=== PATIENT | female | born 1980 | race Caucasian/White ===

== ENCOUNTER 2018-04-10 06:05 | Day surgery (SDC) | payer BC ==
[~2018-04-10] VITALS: Ht 160 cm; Wt 65.9 kg
[~2018-04-10 06:05] MED LIST: LORTA5 PO; OMEP20CA5 PO; RANI150 PO
[2018-04-10 07:00] VITALS: BP 111/76; PULSE 72; RESP 20; TEMP 98.6; O2SAT 98
[2018-04-10] MEDS ORDERED: VANCOMYCIN HCL 1000 MG VIAL ONE (07:31)
[2018-04-10] MEDS ORDERED: CHLORHEXIDINE GLUCONATE 2 % 1 PACK (2 CLOTHS) TOPICAL SCH (07:45)
[2018-04-10] MEDS ORDERED: POVIDONE IODINE 5% (ANTISEPSIS KIT) 4 APPLICATIONS EACH NARE SCH (07:45)
[2018-04-10] MEDS ORDERED: VANCOMYCIN 1000 MG/NS 250 ML - implanted port/tunneled catheter IV SCH ×2 (07:45)
[2018-04-10] MEDS ORDERED: ceFAZolin 2 GM PREMIX 50 ML - implanted port/tunneled catheter insertion IV SCH (07:45)
[2018-04-10] MEDS ORDERED: SODIUM CHLORIDE 0.9% 1000 ML IV SCH (07:45)
[2018-04-10] MEDS ORDERED: MIDAZOLAM HCL 5 MG/5 ML VIAL ONE (07:51)
[2018-04-10] MEDS ORDERED: fentaNYL CITRATE 250 MCG/5 ML AMP ONE (07:51)
[2018-04-10] MEDS ORDERED: LIDOCAINE 1%/EPINEPHrine 1:100,000 SOLN 30 ML VIAL ONE (08:02)
--- NOTE | 2018-04-10 08:41 | PD.RAD ---
Post Procedure Progress Note Procedure Date: Apr 10, 2018 Supervising Radiologist: Korey Anderson Proceduralist/Assist: RT Yonas(R), Other Anesthesia: Conscious Sedation Plan of Activity Patient to Unit: ROPU Patient Condition: Good See PACS Report for procedural detail/treatment Korey Anderson MD Apr 10, 2018 08:41
[2018-04-10 08:50] VITALS: BP 126/68; PULSE 94; RESP 18; TEMP 98; O2SAT 100
[2018-04-10 09:05] VITALS: BP 109/65; PULSE 81; RESP 18; O2SAT 97
[2018-04-10 09:20] VITALS: BP 106/58; PULSE 74; RESP 18; O2SAT 97
[2018-04-10 10:00] VITALS: BP 135/84; PULSE 74; RESP 18; O2SAT 97
[2018-04-10] MEDS ORDERED: ACETAMINOPHEN 325 MG TAB PO ONE (10:00)
[2018-04-10 10:30] VITALS: BP 114/72; PULSE 72; RESP 18; O2SAT 98
--- NOTE | 2018-04-10 13:12 | RADRPT ---
EXAM DATE: 04/10/2018 9:11 AM EDT AGE/SEX: 38 years / Female INDICATIONS: Patient with newly diagnosis for breast cancer. CLINICAL DATA: This is the patient's initial encounter. Patient reports that signs and symptoms have been present for 1 month and indicates a pain score of 0/10. MEDICAL/SURGICAL HISTORY: Carcinoma, breast. Breast biopsy. COMPARISON: No prior exams available for comparison. FLUORO TIME (min): 0.18 IMAGE SERIES: 2 SEDATION TIME (min): 30 MEDICATION(S): 3.5 mg midazolam (Versed) IV 175 mcg fentanyl (Sublimaze) IV Prophylactic antibiotics were administered with appropriate pre-procedure timing. DEVICE(S): Right 8 fr xcela plus port . . PROCEDURE : 1. Continuous pulse oximetry and EKG monitoring. 2. Intravenous conscious sedation. 3. Ultrasound guidance for venous access. 4. Fluoroscopic guided implantable central venous port placement. The patient was placed supine. The neck was prepped in sterile fashion. Full sterile technique was u sed, including cap, mask, sterile gloves and gown, and a large sterile sheet. Hand hygiene and 2% ch lorhexidine Betadine was utilized per protocol for cutaneous antisepsis with appropriate dry time for site. Sterile gel and sterile probe cover were utilized for ultrasound guidance. The skin and sub cutaneous tissues were infiltrated with local anesthetic solution. Under direct ultrasound guidance, central venous access was accomplished in the targeted vessel. The ultrasound images depicting access guidance were stored and saved to PACS for permanent record. A s ubcutaneous pocket was created using blunt dissection. The port was introduced to the pocket. The c atheter tubing was fed through a subcutaneous tunnel to the venotomy site. The catheter tubing was c ut to a suitable length and then was introduced through a valved Peel-Away sheath and positioned with catheter tubing tip at the cavo-atrial junction level. The pocket incision was closed with subcutic ular Vicryl suture. Steri-Strips were applied. The port was flushed and locked with heparin solutio n per protocol. Sterile dressing was applied to the site. The patient tolerated the procedure well. Conscious sedation was performed with the prescribed dosages and duration as above in the presence of an independent trained radiology nurse to assist in the monitoring of the patient. EKG and oximetry remained stable throughout the procedure. The patient tolerated the procedure well and there were no complications. The patient was sent to post anesthesia recovery in stable condition. CONCLUSION: 1. Uncomplicated ultrasound and fluoroscopic guided implanted central venous port catheter placement as described in detail above. An 8 [place] Power port was placed. Electronically signed by: Korey Anderson MD 04/10/2018 1:11 PM EDT
== END 2018-04-10 10:50 | disposition home or self-care (01) ==
LOC: HROP 06:05 → HRIP 06:05 → HROP 10:50
PROVIDERS: ATTEND Internal Medicine Hematology & Oncology
DX: C50.911 Malignant neoplasm of unspecified site of right female breast (principal)
CPT/HCPCS: 36561; 76937; 77001; 88361; 99152; 99153; C1788; J0690; J1642; J2250; J3010; J3370; J7030

== ENCOUNTER 2018-05-24 20:45 | Observation (INO) ==
[2018-05-24] MEDS ORDERED: Pantoprazole Inj 40 MG Vial IV.PUSH ONE (21:47)
[2018-05-24] MEDS ORDERED: Sod Chloride 0.9% Inj 1,000 ML IV.SIG ONE (21:47)
--- NOTE | 2018-05-24 21:55 | ED ---
HPI General Chief Complaint: Abdominal Pain Stated Complaint: Abd pain Time Seen by Provider: 05/24/18 21:38 Source: patient and family Mode of arrival: ambulatory Limitations: no limitations History of Present Illness HPI narrative: She is a 38-year-old female presenting to emerge department for evaluation of abdominal pain, nausea. Patient is currently receiving chemotherapy for breast cancer. She had her last treatment today. She is currently followed by Dr. Vanessa and Dr. Alexandre. She reports that she has had colicky intermittent abdominal pain for the last week, today it has gotten worse prompting her presentation to emergency department. Patient states it makes her feel nauseated, sometimes alleviated with food but she has not been able to eat all day because he is nauseous from the chemotherapy. She reports that normally the Emend helps the nausea but today it has not. She denies any fever, chills, shortness of breath or chest pain. Symptom onset has been gradual, symptoms are moderate in nature. There are no alleviating factors. MD complaint: abdominal pain Onset (ago): week(s) Pain Consistency: intermittent and colicky Location: LUQ and epigastric Severity: moderate Severity scale (1-10): 6 Quality: cramping and aching Radiation: none Migration to: no migration Relieving factors: nothing Exacerbating factors: nothing Associated symptoms: nausea Related Data Previous Rx's Medication Instructions Recorded Lactobacillus acidoph-L.bulgar 1 tab PO TID #90 tab 05/27/18 [Lactinex] ondansetron [Zofran ODT] 8 mg PO TID PRN #30 tab 05/27/18 pantoprazole [Protonix] 40 mg PO DAILY #30 tab 05/27/18 sucralfate 1 gm PO Q6HR #120 gm 05/27/18 Allergies Allergy/AdvReac Type Severity Reaction Status Date / Time No Known Allergies Allergy Unknown Uncoded 04/10/18 07:27 Review of Systems Except as stated in HPI: all other systems reviewed are negative PMFSH History History Provided By: Patient Medical History Medical History Breast cancer (Acute) Surgical History Surgical History History of (Acute) History of tonsillectomy (Acute) Family History Family History Father Heart disease COPD (chronic obstructive pulmonary disease) Diabetes Exam Narrative Exam Narrative: GENERAL: Well-developed, well-nourished, alert female. Presenting in no acute distress. Appears uncomfortable. SKIN: Focused skin assessment warm/dry. HEAD: Atraumatic. Normocephalic. EYES: Pupils equal and round. No scleral icterus. No injection or drainage. ENT: No nasal bleeding or discharge. Mucous membranes pink and moist. NECK: Trachea midline. No JVD. CARDIOVASCULAR: Regular rate and rhythm. No murmur appreciated. RESPIRATORY: No accessory muscle use. Clear to auscultation. Breath sounds equal bilaterally. GASTROINTESTINAL: Abdomen soft, tender to palpation epigastric and left upper quadrant, nondistended. Hepatic and splenic margins not palpable. Positive guarding, no rebound. Positive bowel sounds. MUSCULOSKELETAL: No obvious deformities. No clubbing. No cyanosis. No edema. NEUROLOGICAL: Awake and alert. No obvious cranial nerve deficits. Motor grossly within normal limits. Normal speech. PSYCHIATRIC: Appropriate mood and affect; insight and judgment normal. Course Initial Documented Vital Signs Temperature 98.2 F 05/24/18 21:28 Pulse Rate 88 05/24/18 21:28 Respiratory Rate 20 05/24/18 21:28 Blood Pressure 125/75 05/24/18 21:28 Pulse Oximetry 99 05/24/18 21:28 Last Documented Vital Signs Temperature 98.2 F 05/27/18 13:00 Pulse Rate 83 05/27/18 13:00 Respiratory Rate 18 05/27/18 13:00 Blood Pressure 134/80 05/27/18 12:05 Pulse Oximetry 99 05/27/18 13:00 Medical Decision Making [facility] [place] Narrative Medical decision making narrative: Patient presented with abdominal pain and nausea. Symptoms have persisted for over a week. Labs and imaging ordered and pending, IV access established and patient was placed on telemetry monitoring continuous pulse oximetry. Patient is currently receiving chemotherapy for breast cancer. Care of patient transferred to my attending physician who will determine patient's disposition. Medical Records Medical records reviewed: Yes I reviewed the patient's medical records. Lab Data Lab results reviewed: Yes I reviewed the patient's lab results. Result diagrams: 05/27/18 05:30 05/27/18 05:30 Lab Results 05/24/18 05/24/18 05/25/18 Range/Units 22:15 22:15 05:49 WBC 13.6 H D 12.2 H (4.0-11.0) th/mm3 RBC 3.21 L 2.89 L (4.00-5.30) mil/mm3 Hgb 10.0 L 9.1 L (11.6-15.3) gm/dL Hct 29.7 L 26.7 L (35.0-46.0) % MCV 92.6 92.5 (80.0-100.0) fL MCH 31.2 31.4 (27.0-34.0) pg MCHC 33.7 33.9 (32.0-36.0) % RDW 14.1 14.2 (11.6-17.2) % Plt Count 325 289 (150-450) th/mm3 MPV 7.3 6.9 L (7.0-11.0) fL Prelim Diff (Auto) Slide review pending Neut % (Auto) 94.5 H 90.7 H (16.0-70.0) % Lymph % (Auto) 3.8 L 3.1 L (9.0-44.0) % [place] % (Auto) 1.4 6.0 (0.0-8.0) % Eos % (Auto) 0.0 0.0 (0.0-4.0) % Baso % (Auto) 0.3 0.2 (0.0-2.0) % Neut # (Auto) 12.8 H 11.1 H (1.8-7.7) th/mm3 Lymph # (Auto) 0.5 L 0.4 L (1.0-4.8) th/mm3 [place] # (Auto) 0.2 0.7 (0.0-0.9) th/mm3 Eos # (Auto) 0.0 0.0 (0.0-0.4) th/mm3 Baso # (Auto) 0.0 0.0 (0.0-0.2) th/mm3 WBC Differential Manual diff final . Seg Neuts % (Manual) 69 (16-70) % Band Neuts % (Manual) 21 H (0-6) % Lymphocytes % (Manual) 2 L (9-44) % Monocytes % (Manual) 3 (0-8) % Basophils % (Manual) (0-2) % Metamyelocytes % (Man) 4 H (0-1) % Myelocytes % (Man) 1 H (0-0) % Abs Neuts (Manual) 12.9 H (1.8-7.7) th/mm3 Differential Comment . Auto diff final Toxic Granulation 2+ H (None) Dohle Bodies (None) Platelet Estimate Normal (Normal) Platelet Morphology Normal (Normal) Ovalocytes (None) Sodium 139 (136-145) meq/L Potassium 4.1 (3.5-5.1) meq/L Chloride 104 (98-107) meq/L Carbon Dioxide 27.5 (21.0-32.0) meq/L Anion Gap 8 (5-15) meq/L BUN 12 (7-18) mg/dL Creatinine 0.59 (0.50-1.00) mg/dL Estimated GFR Greater than 89 (>89) mL/min Random Glucose 141 H (74-106) mg/dL Calcium 8.5 D (8.5-10.1) mg/dL Total Bilirubin 0.2 (0.2-1.0) mg/dL AST 17 (15-37) U/L ALT 18 (10-53) U/L Alkaline Phosphatase 102 (45-117) U/L Total Protein 7.4 D (6.4-8.2) g/dL Albumin 3.7 (3.4-5.0) g/dL Lipase 107 (73-393) U/L Urine Color (Yellw/Straw) Urine Clarity (Clear) Urine pH (5.0-8.5) Ur Specific [place] (1.002-1.035) Urine Protein (Neg-Trace) mg/dL Urine Glucose (UA) (Negative) mg/dL Urine Ketones (Negative) mg/dL Urine Occult Blood (Negative) Urine Nitrate (Negative) Urine Bilirubin (Negative) Urine Urobilinogen (Less than 2) mg/dL Ur Leukocyte Esterase (Negative) Urine RBC (0-3) /hpf Urine WBC (0-5) /hpf Ur Squamous Epith Cells (0-5) /hpf Micro UA Comment Urine Culture Comments 05/25/18 05/26/18 05/26/18 Range/Units 08:24 09:20 09:20 WBC 34.1 H (4.0-11.0) th/mm3 RBC 2.60 L (4.00-5.30) mil/mm3 Hgb 8.3 L (11.6-15.3) gm/dL Hct 24.4 L (35.0-46.0) % MCV 93.5 (80.0-100.0) fL MCH 31.7 (27.0-34.0) pg MCHC 33.9 (32.0-36.0) % RDW 15.4 (11.6-17.2) % Plt Count 231 (150-450) th/mm3 MPV 7.1 (7.0-11.0) fL Prelim Diff (Auto) Slide review pending Neut % (Auto) 96.3 H (16.0-70.0) % Lymph % (Auto) 1.6 L (9.0-44.0) % [place] % (Auto) 1.9 (0.0-8.0) % Eos % (Auto) 0.0 (0.0-4.0) % Baso % (Auto) 0.2 (0.0-2.0) % Neut # (Auto) 32.8 H (1.8-7.7) th/mm3 Lymph # (Auto) 0.5 L (1.0-4.8) th/mm3 [place] # (Auto) 0.6 (0.0-0.9) th/mm3 Eos # (Auto) 0.0 (0.0-0.4) th/mm3 Baso # (Auto) 0.1 (0.0-0.2) th/mm3 WBC Differential Manual diff final Seg Neuts % (Manual) 79 H (16-70) % Band Neuts % (Manual) 15 H (0-6) % Lymphocytes % (Manual) 2 L (9-44) % Monocytes % (Manual) 3 (0-8) % Basophils % (Manual) 1 (0-2) % Metamyelocytes % (Man) (0-1) % Myelocytes % (Man) (0-0) % Abs Neuts (Manual) 32.1 H (1.8-7.7) th/mm3 Differential Comment . Toxic Granulation 1+ H (None) Dohle Bodies (None) Platelet Estimate Normal (Normal) Platelet Morphology Normal (Normal) Ovalocytes 1+ H (None) Sodium 144 (136-145) meq/L Potassium 3.3 L D (3.5-5.1) meq/L Chloride 109 H (98-107) meq/L Carbon Dioxide 25.5 (21.0-32.0) meq/L Anion Gap 10 (5-15) meq/L BUN 11 (7-18) mg/dL Creatinine 0.65 (0.50-1.00) mg/dL Estimated GFR Greater than 89 (>89) mL/min Random Glucose 99 (74-106) mg/dL Calcium 8.0 L (8.5-10.1) mg/dL Total Bilirubin 0.3 (0.2-1.0) mg/dL AST 14 L (15-37) U/L ALT 13 (10-53) U/L Alkaline Phosphatase 77 (45-117) U/L Total Protein 5.5 L D (6.4-8.2) g/dL Albumin 2.8 L D (3.4-5.0) g/dL Lipase (73-393) U/L Urine Color Straw (Yellw/Straw) Urine Clarity Clear (Clear) Urine pH 6.0 (5.0-8.5) Ur Specific [place] 1.013 (1.002-1.035) Urine Protein Negative (Neg-Trace) mg/dL Urine Glucose (UA) Negative (Negative) mg/dL Urine Ketones Negative (Negative) mg/dL Urine Occult Blood Negative (Negative) Urine Nitrate Negative (Negative) Urine Bilirubin Negative (Negative) Urine Urobilinogen Less than 2 (Less than 2) mg/dL Ur Leukocyte Esterase Negative (Negative) Urine RBC Less than 1 (0-3) /hpf Urine WBC Less than 1 (0-5) /hpf Ur Squamous Epith Cells 1 (0-5) /hpf Micro UA Comment Culture not ind Urine Culture Comments Culture not ind 05/27/18 05/27/18 Range/Units 05:30 05:30 WBC 42.7 H (4.0-11.0) th/mm3 RBC 2.88 L (4.00-5.30) mil/mm3 Hgb 9.2 L (11.6-15.3) gm/dL Hct 26.7 L (35.0-46.0) % MCV 92.6 (80.0-100.0) fL MCH 31.9 (27.0-34.0) pg MCHC 34.5 (32.0-36.0) % RDW 14.9 (11.6-17.2) % Plt Count 254 (150-450) th/mm3 MPV 6.8 L (7.0-11.0) fL Prelim Diff (Auto) Manual diff required Neut % (Auto) (16.0-70.0) % Lymph % (Auto) (9.0-44.0) % [place] % (Auto) (0.0-8.0) % Eos % (Auto) (0.0-4.0) % Baso % (Auto) (0.0-2.0) % Neut # (Auto) (1.8-7.7) th/mm3 Lymph # (Auto) (1.0-4.8) th/mm3 [place] # (Auto) (0.0-0.9) th/mm3 Eos # (Auto) (0.0-0.4) th/mm3 Baso # (Auto) (0.0-0.2) th/mm3 WBC Differential Manual diff final Seg Neuts % (Manual) 85 H (16-70) % Band Neuts % (Manual) 13 H (0-6) % Lymphocytes % (Manual) 1 L (9-44) % Monocytes % (Manual) 2 (0-8) % Basophils % (Manual) (0-2) % Metamyelocytes % (Man) (0-1) % Myelocytes % (Man) (0-0) % Abs Neuts (Manual) 41.8 H (1.8-7.7) th/mm3 Differential Comment . Toxic Granulation 1+ H (None) Dohle Bodies Present H (None) Platelet Estimate Normal (Normal) Platelet Morphology Normal (Normal) Ovalocytes (None) Sodium 143 (136-145) meq/L Potassium 3.7 (3.5-5.1) meq/L Chloride 110 H (98-107) meq/L Carbon Dioxide 28.0 (21.0-32.0) meq/L Anion Gap 5 (5-15) meq/L BUN 10 (7-18) mg/dL Creatinine 0.57 (0.50-1.00) mg/dL Estimated GFR Greater than 89 (>89) mL/min Random Glucose 91 (74-106) mg/dL Calcium 8.1 L (8.5-10.1) mg/dL Total Bilirubin (0.2-1.0) mg/dL AST (15-37) U/L ALT (10-53) U/L Alkaline Phosphatase (45-117) U/L Total Protein (6.4-8.2) g/dL Albumin (3.4-5.0) g/dL Lipase (73-393) U/L Urine Color (Yellw/Straw) Urine Clarity (Clear) Urine pH (5.0-8.5) Ur Specific [place] (1.002-1.035) Urine Protein (Neg-Trace) mg/dL Urine Glucose (UA) (Negative) mg/dL Urine Ketones (Negative) mg/dL Urine Occult Blood (Negative) Urine Nitrate (Negative) Urine Bilirubin (Negative) Urine Urobilinogen (Less than 2) mg/dL Ur Leukocyte Esterase (Negative) Urine RBC (0-3) /hpf Urine WBC (0-5) /hpf Ur Squamous Epith Cells (0-5) /hpf Micro UA Comment Urine Culture Comments Imaging Data Radiologist's impression: Gallbladder Ultrasound 05/25/18 00:00 CONCLUSION: 1. Normal exam Abdomen/Pelvis CT 05/25/18 00:18 CONCLUSION: 1. 1.7 cm tubular structure adjacent to the inferior cecum could represent a dilated appendix; inflamed appendix cannot be excluded. 2. Mild amount of free fluid in the dependent pelvis on the right side. Discharge Plan Discharge Disposition Patient Disposition: 30 Still Patient Discharge Condition Condition: Stable Discharge Order Discharge Orders: Discharge Order (Routine); Ordered 05/27/18 Ordered By: Vinnie Lockwood Discharge Details Anticipated Discharge Date: 05/27/18 Discharge Comment: DC TO HOME Physicians Team ED Provider: Shankar Martinez ED Midlevel Provider: Rafaela Rizo Primary Care Provider: Lorenza Moore Attending Provider: Vinnie Lockwood Other Providers: Casa Vanessa ; Shankar Walton ; Glenys Gill ; Rosamaria Bob Status ED Status: Left Department Discharge Information Discharge Date/Time: 05/25/18 09:14
[2018-05-24 22:35] LABS: Baso % (Auto) 0.3 % (0.0-2.0); Hematocrit 29.7 % (35.0-46.0); Lymph # (Auto) 0.5 th/mm3 (1.0-4.8); Lymph % (Auto) 3.8 % (9.0-44.0); Mean Corpuscular HGB Conc 33.7 % (32.0-36.0); Mean Corpuscular Hemoglobin 31.2 pg (27.0-34.0); Mean Corpuscular Volume 92.6 fL (80.0-100.0); Mean Platelet Volume 7.3 fL (7.0-11.0); Mono # (Auto) 0.2 th/mm3 (0.0-0.9); Mono % (Auto) 1.4 % (0.0-8.0); Neut # (Auto) 12.8 th/mm3 (1.8-7.7); Neut % (Auto) 94.5 % (16.0-70.0); Platelet Count 325 th/mm3 (150-450); Red Blood Count 3.21 mil/mm3 (4.00-5.30); Red Cell Distribution Width 14.1 % (11.6-17.2); White Blood Count 13.6 th/mm3 (4.0-11.0)
[2018-05-24 22:43] LABS: Albumin 3.7 g/dL (3.4-5.0); Anion Gap 8 meq/L (5-15); Aspartate Aminotransferase 17 U/L (15-37); Blood Urea Nitrogen 12 mg/dL (7-18); Calcium 8.5 mg/dL (8.5-10.1); Carbon Dioxide 27.5 meq/L (21.0-32.0); Chloride 104 meq/L (98-107); Glomerular Filtration Rate Greater Than 89 mL/min (>89); Glucose,Random 141 mg/dL (74-106); Lipase 107 U/L (73-393); Potassium 4.1 meq/L (3.5-5.1); Sodium 139 meq/L (136-145)
[2018-05-24 22:46] LABS: Alanine Aminotransferase 18 U/L (10-53); Alkaline Phosphatase 102 U/L (45-117); Total Protein 7.4 g/dL (6.4-8.2)
[2018-05-25 00:49] LABS: Lymphocytes 2 % (9-44); Metamyelocytes 4 % (0-1); Monocytes 3 % (0-8); Myelocytes 1 % (0-0); Platelet Estimate Normal (Normal); Platelet Morphology Normal (Normal)
[2018-05-25 00:50] LABS: Toxic Granulation 2+
--- NOTE | 2018-05-25 01:40 | CT ---
EXAM DATE: 05/25/2018 1:28 AM EDT AGE/SEX: 38 years / Female INDICATIONS: Abdominal pain and nausea. CLINICAL DATA: This is the patient's initial encounter. Patient reports that signs and symptoms have been present for 1 day and indicates a pain score of 5/10. MEDICAL/SURGICAL HISTORY: Carcinoma, breast. None. ORAL CONTRAST: No oral contrast ingested. RADIATION DOSE: 6.92 CTDI (mGy) COMPARISON: No prior exams available for comparison. TECHNIQUE: Multiple contiguous axial images were obtained through the abdomen and pelvis following b olus infusion of 90 ml Omnipaque 350 (iohexol) nonionic water-soluble contrast as a single exam dos e. No oral contrast ingested. Using automated exposure control and adjustment of the mA and/or kV ac cording to patient size, radiation dose was kept as low as reasonably achievable to obtain optimal di agnostic quality images. DICOM format image data is available electronically for review and comparis on. FINDINGS: Examination is performed with the patient's right arm in the [id number] of the exam. Lower Lungs: The visualized lower lungs are clear. Liver: The liver has a homogeneous density without space-occupying lesion. There is no dilation of th e biliary tree. No calcified gallstones. Spleen: Homogeneous density without enlargement. Pancreas: Unremarkable without mass or calcification. Kidneys: Normal in size and shape. No evidence of mass or hydronephrosis. Mildly prominent extrarena l pelvis on both sides. Adrenal Glands: Unremarkable. Aorta: The aorta and proximal iliac vessels are grossly unremarkable without aneurysmal dilation. Bowel/Mesentery: No dilated loops of small or large bowel. Inferior to the cecum, there is a tubular structure which measures 1.7 cm in dimension. This does not represent the terminal ileum and could r epresent a distended appendix. No induration of the fat about this structure and no evidence of focal fluid in the right lower quadrant. Abdominal Wall: Intact. Retroperitoneum: No evidence of adenopathy in the retrocrural, para-aortic, or deep pelvic regions. Bladder: Contours are smooth. Reproductive Organs: Anteverted uterus. No abnormal masses or calcifications seen. Mild amount of fr ee fluid in the dependent pelvis. Inguinal: The inguinal region is unremarkable without evidence of adenopathy. Bony Structures: Unremarkable. CONCLUSION: 1. 1.7 cm tubular structure adjacent to the inferior cecum could represent a dilated appendix; infla med appendix cannot be excluded. 2. Mild amount of free fluid in the dependent pelvis on the right side. Electronically signed by: Akin Cuadra MD 05/25/2018 1:39 AM EDT
[2018-05-25] MEDS ORDERED: Morphine Inj 4 MG/ML Vial IV.PUSH ONE (02:09)
[2018-05-25] MEDS ORDERED: Aluminum/Magnesium/Simethacone Susp 30 ML UDC PO ONE (02:14)
[2018-05-25] MEDS ORDERED: fentaNYL Citrate Inj 100 MCG/2 ML Ampul IV.PUSH ONE (04:53)
[2018-05-25 06:05] LABS: Baso % (Auto) 0.2 % (0.0-2.0); Hematocrit 26.7 % (35.0-46.0); Hemoglobin 9.1 gm/dL (11.6-15.3); Lymph # (Auto) 0.4 th/mm3 (1.0-4.8); Lymph % (Auto) 3.1 % (9.0-44.0); Mean Corpuscular HGB Conc 33.9 % (32.0-36.0); Mean Corpuscular Hemoglobin 31.4 pg (27.0-34.0); Mean Corpuscular Volume 92.5 fL (80.0-100.0); Mean Platelet Volume 6.9 fL (7.0-11.0); Mono # (Auto) 0.7 th/mm3 (0.0-0.9); Neut # (Auto) 11.1 th/mm3 (1.8-7.7); Neut % (Auto) 90.7 % (16.0-70.0); Platelet Count 289 th/mm3 (150-450); Red Blood Count 2.89 mil/mm3 (4.00-5.30); Red Cell Distribution Width 14.2 % (11.6-17.2); White Blood Count 12.2 th/mm3 (4.0-11.0)
[2018-05-25] MEDS ORDERED: Piperacil/Tazo 3.375 GM Premix 50 ML IV.SIG ONE (06:19)
[2018-05-25] MEDS ORDERED: Bisacodyl 10 MG Supp RECTAL PRN (06:21)
[2018-05-25] MEDS ORDERED: Temazepam 15 MG Capsule PO PRN (06:21)
[2018-05-25] MEDS ORDERED: Acetaminophen 325 MG Tablet PO PRN (06:21)
[2018-05-25] MEDS: Sod Chloride 0.9% Inj 1,000 ML IV.CONT SCH ×2 (06:40→23:27)
[2018-05-25] MEDS ORDERED: Morphine Inj 4 MG/ML Vial IV.PUSH PRN (08:00)
--- NOTE | 2018-05-25 08:11 | P.HPIM ---
History of Present Illness Primary Care Physician: Lorenza Moore History of Present Illness: 38-year-old female currently undergoing chemotherapy for breast cancer who presented for abdominal pain. The patient has been having upper mid abdominal discomfort intermittently for the past week. The pain waxes and wanes. The pain peaked at 8/10 in severity yesterday and she came to the ED for evaluation. Denies any recent change to chemotherapy regimen, follows with Dr. Vanessa. She has been having some associated nausea and decreased oral intake, but denies any vomiting, diarrhea, or constipation. CT abdomen in the ED showed possible dilated appendix, inflamed appendix cannot be excluded, mild free fluid in the dependent pelvis on the right side. WBC count 13 with left shift and bandemia, no fever. Review of Systems All other systems reviewed negative except as stated in HPI PMFSH - History History Provided By: Patient - Medical History Medical History: Medical History (Last Reviewed 05/25/18 @ 08:04 by RIGO Carter) Breast cancer - Family History Family History: Family History (Last Updated 05/25/18 @ 08:05 by RIGO Carter) Father Heart disease - Tobacco History Smoking Status: Never smoker - Alcohol History How Often Do You Have a Drink Containing Alcohol: Never - Substance Use History Substance History: No History of Abuse - Travel History Recent Travel in the [place] Within the Last 8 Weeks: No Recent Travel Out of the Country Within the Last 8 Weeks: No - Immunization History Tetanus Immunization: >5 Years Hx Influenza Vaccine This Season: No Medications and Allergies Active Medications: Active Medications Acetaminophen (Tylenol) 650 mg PO Q4H PRN PRN Reason: Temp > 100.4 Al Hydroxide/Mg Hydroxide (Milk Of Magnesia Liq) 30 ml PO Q12H PRN PRN Reason: Mild Constipation Bisacodyl (Dulcolax Supp) 10 mg RECTAL DAILY PRN PRN Reason: SEVERE CONSITIPATION Sodium Chloride (Ns Inj) 1,000 mls @ 100 mls/hr IV.CONT .Q10H FATOU Last Admin: 05/25/18 06:40 Dose: 100 mls/hr Piperacillin/Tazobactam/Dextrose (Zosyn 4.5 Gm Premix) 4.5 gm in 100 mls @ 200 mls/hr IV.SIG Q6H FATOU Lactulose (Lactulose Liq) 30 ml PO DAILY PRN PRN Reason: SEVERE CONSITIPATION Morphine Sulfate (Morphine Inj) 2 mg IV.PUSH Q4H PRN PRN Reason: ABDOMINAL PAIN Ondansetron HCl (Zofran Inj) 4 mg IV.PUSH Q6H PRN PRN Reason: NAUSEA OR VOMITING Prochlorperazine Edisylate (Compazine Inj) 10 mg IV.PUSH Q6H PRN PRN Reason: NAUSE/VOMITING Senna/Docusate Sodium (Hayley-Colace) 1 tab PO BID FATOU Sennosides (Senokot) 17.2 mg PO Q12H PRN PRN Reason: Moderate Constipation Sodium Chloride (Ns Flush) 2 ml IV.FLUSH PRN PRN PRN Reason: FLUSH AFTER USING IV ACCESS Temazepam (Restoril) 15 mg PO HS PRN PRN Reason: INSOMNIA Allergies Allergy/AdvReac Type Severity Reaction Status Date / Time No Known Allergies Allergy Unknown Uncoded 04/10/18 07:27 Home Medications Medication Instructions Recorded Confirmed Type aprepitant [Emend] See Label Instructions .ROUTE 05/25/18 History .COMPLEX pegfilgrastim [Neulasta] See Label Instructions .ROUTE 05/25/18 05/25/18 History .COMPLEX Exam Vital signs: Vital Signs 05/24/18 21:28 05/24/18 22:19 05/25/18 04:46 Temperature 98.2 F 98.6 F Pulse Rate 88 78 Respiratory Rate 20 16 Blood Pressure 125/75 109/62 Pulse Oximetry 99 98 100 Intake & Output 05/24/18 05/25/18 05/25/18 18:59 06:59 18:59 Intake Total 1000 / 1000 Balance 1000 / 1000 Weight 156 lb 8.451 oz Intake: IV 1000 / 1000 Narrative: GENERAL: Well-developed well-nourished. In no acute distress. SKIN: Warm and dry. No lesions noted. HEENT: Normocephalic. Pupils equal and round. Mucous membranes pink and moist. CARDIOVASCULAR: Regular rate and rhythm. No murmur appreciated. RESPIRATORY: No accessory muscle use. Clear to auscultation. Breath sounds equal bilaterally. GASTROINTESTINAL: Abdomen is tender superior to the umbilicus. No rebound tenderness. Soft, nondistended. Hypoactive bowel sounds. MUSCULOSKELETAL: No obvious deformities. No clubbing or cyanosis. No edema. NEUROLOGICAL: Awake and alert. No focal neurological deficits. Moves upper and lower extremities spontaneously. Normal speech. PSYCHIATRIC: Appropriate mood and affect; insight and judgment normal. Results - Labs CBC & Chem 7: 05/25/18 05:49 05/24/18 22:15 Labs: Short CBC 05/24/18 05/25/18 Range/Units 22:15 05:49 WBC 13.6 H D 12.2 H (4.0-11.0) th/mm3 Hgb 10.0 L 9.1 L (11.6-15.3) gm/dL Hct 29.7 L 26.7 L (35.0-46.0) % Plt Count 325 289 (150-450) th/mm3 BMP 05/24/18 22:15 Sodium 139 Potassium 4.1 Chloride 104 Carbon Dioxide 27.5 BUN 12 Creatinine 0.59 Calcium 8.5 D Liver Function 05/24/18 Range/Units 22:15 Total Bilirubin 0.2 (0.2-1.0) mg/dL AST 17 (15-37) U/L ALT 18 (10-53) U/L Alkaline Phosphatase 102 (45-117) U/L Albumin 3.7 (3.4-5.0) g/dL - Imaging Impressions Abdomen/Pelvis CT 05/25/18 00:18 CONCLUSION: 1. 1.7 cm tubular structure adjacent to the inferior cecum could represent a dilated appendix; inflamed appendix cannot be excluded. 2. Mild amount of free fluid in the dependent pelvis on the right side. Caprini VTE Risk Assessment Caprini VTE Risk Assessment: Moderate/High Risk (score >= 2) Caprini Risk Assessment Model: Point Value = 1 Point Value = 2 Point Value = 3 Point Value = 5 Age 41-60 Minor surgery BMI > 25 kg/m2 Swollen legs Varicose veins or History of unexplained or recurrent spontaneous Oral contraceptives or hormone replacement Sepsis (< 1 month) Serious lung disease, including pneumonia (< 1 month) Abnormal pulmonary function Acute myocardial infarction Congestive heart failure (< 1 month) History of inflammatory bowel disease Medical patient at bed rest Age 61-74 Arthroscopic surgery Major open surgery (> 45 min) Laparoscopic surgery (> 45 min) Malignancy Confined to bed (> 72 hours) Immobilizing plaster cast Central venous access Age >= 75 History of VTE Family history of VTE Factor V Leiden Prothrombin [id number] Lupus anticoagulant Anticardiolipin antibodies Elevated serum homocysteine Heparin-induced thrombocytopenia Other congenital or acquired thrombophilia Stroke (< 1 month) Elective arthroplasty Hip, pelvis, or leg fracture Acute spinal cord injury (< 1 month) Prophylaxis Regimen: Total Risk Factor Score Risk Level Prophylaxis Regimen 0-1 Low Early ambulation 2 Moderate Order ONE of the following: *Sequential Compression Device (SCD) *Heparin 5000 units SQ BID 3-4 Higher Order ONE of the following medications: *Heparin 5000 units SQ TID *Enoxaparin/Lovenox 40 mg SQ daily (WT < 150 kg, CrCl > 30 mL/min) *Enoxaparin/Lovenox 30 mg SQ daily (WT < 150 kg, CrCl > 10-29 mL/min) *Enoxaparin/Lovenox 30 mg SQ BID (WT < 150 kg, CrCl > 30 mL/min) AND/OR *Sequential Compression Device (SCD) 5 or more Highest Order ONE of the following medications: *Heparin 5000 units SQ TID (Preferred with Epidurals) *Enoxaparin/Lovenox 40 mg SQ daily (WT < 150 kg, CrCl > 30 mL/min) *Enoxaparin/Lovenox 30 mg SQ daily (WT < 150 kg, CrCl > 10-29 mL/min) *Enoxaparin/Lovenox 30 mg SQ BID (WT < 150 kg, CrCl > 30 mL/min) AND *Sequential Compression Device (SCD) Assessment and Plan - Plan 38-year-old female currently undergoing chemotherapy for breast cancer who presented for abdominal pain Abdominal pain: Rule out appendicitis, general surgery has been consulted. N.p.o. and IVF. IV Zosyn. Pain control with IV morphine prn. If no appendicitis, may need GI evaluation. Check UA. Breast cancer: Currently undergoing chemotherapy with Dr. Vanessa, consider routine consult to touch base. Discussed Condition With: Patient, Dr. Lozano
[2018-05-25 08:44] LABS: Bilirubin,Urine Negative (Negative); Clarity,Urine Clear (Clear); Color,Urine Straw (Yellw/Straw); Glucose,Urine (UA) Negative (Negative); Leukocyte Esterase,Urine Negative (Negative); Nitrite,Urine Negative (Negative); Specific Gravity,Urine 1.013 (1.002-1.035); Squamous Epithelial Cell,Urine 1 /hpf (0-5)
--- NOTE | 2018-05-25 10:29 | P.CONGS ---
[facility] Gen Surgery Consult Note Consult date: 05/25/18 Reason for consult: abdominal pain Narrative: 38-year-old female currently undergoing chemotherapy for breast cancer under care of Dr. Vanessa presents with severe epigastric abdominal pain. She has had epigastric abdominal pain and nausea for approximately 1 week. She had chemotherapy yesterday. Her pain worsened and became quite severe and she presented to the emergency department. She tried Emend which she has taken before for chemo related nausea but her symptoms persisted. The patient has mild leukocytosis. She did receive Neulasta. CT of the abdomen and pelvis showed possibly dilated appendix but without inflammatory changes. Review of Systems All other systems reviewed negative except as stated in [facility] - History History Provided By: Patient - Medical History Medical History: Medical History (Last Reviewed 05/25/18 @ 08:04 by RIGO Carter) Breast cancer - Surgical History Surgical History: Surgical History (Last Updated 05/25/18 @ 08:04 by RIGO Carter) History of History of tonsillectomy - Family History Family History: Family History (Last Updated 05/25/18 @ 08:05 by RIGO Carter) Father Heart disease COPD (chronic obstructive pulmonary disease) Diabetes - Tobacco History Smoking Status: Never smoker - Alcohol History How Often Do You Have a Drink Containing Alcohol: Never - Substance Use History Substance History: No History of Abuse - Travel History Recent Travel in the [place] Within the Last 8 Weeks: No Recent Travel Out of the Country Within the Last 8 Weeks: No - Immunization History Tetanus Immunization: >5 Years Hx Influenza Vaccine This Season: No Medications and Allergies Active Medications: Active Medications Acetaminophen (Tylenol) 650 mg PO Q4H PRN PRN Reason: Temp > 100.4 Al Hydroxide/Mg Hydroxide (Milk Of Magnesia Liq) 30 ml PO Q12H PRN PRN Reason: Mild Constipation Bisacodyl (Dulcolax Supp) 10 mg RECTAL DAILY PRN PRN Reason: SEVERE CONSITIPATION Sodium Chloride (Ns Inj) 1,000 mls @ 100 mls/hr IV.CONT .Q10H FATOU Last Admin: 05/25/18 06:40 Dose: 100 mls/hr Piperacillin/Tazobactam/Dextrose (Zosyn 4.5 Gm Premix) 4.5 gm in 100 mls @ 200 mls/hr IV.SIG Q6H FATOU Lactulose (Lactulose Liq) 30 ml PO DAILY PRN PRN Reason: SEVERE CONSITIPATION Morphine Sulfate (Morphine Inj) 2 mg IV.PUSH Q4H PRN PRN Reason: ABDOMINAL PAIN Ondansetron HCl (Zofran Inj) 4 mg IV.PUSH Q6H PRN PRN Reason: NAUSEA OR VOMITING Prochlorperazine Edisylate (Compazine Inj) 10 mg IV.PUSH Q6H PRN PRN Reason: NAUSE/VOMITING Senna/Docusate Sodium (Hayley-Colace) 1 tab PO BID FATOU Sennosides (Senokot) 17.2 mg PO Q12H PRN PRN Reason: Moderate Constipation Sodium Chloride (Ns Flush) 2 ml IV.FLUSH PRN PRN PRN Reason: FLUSH AFTER USING IV ACCESS Temazepam (Restoril) 15 mg PO HS PRN PRN Reason: INSOMNIA Allergies Allergy/AdvReac Type Severity Reaction Status Date / Time No Known Allergies Allergy Unknown Uncoded 04/10/18 07:27 Home Medications Medication Instructions Recorded Confirmed Type aprepitant [Emend] See Label Instructions .ROUTE 05/25/18 History .COMPLEX pegfilgrastim [Neulasta] See Label Instructions .ROUTE 05/25/18 05/25/18 History .COMPLEX Exam Vital signs: Vital Signs 05/24/18 21:28 05/24/18 22:19 05/25/18 04:46 Temperature 98.2 F 98.6 F Pulse Rate 88 78 Respiratory Rate 20 16 Blood Pressure 125/75 109/62 Pulse Oximetry 99 98 100 05/25/18 08:19 Temperature 98.6 F Pulse Rate 82 Respiratory Rate 16 Blood Pressure 111/72 Pulse Oximetry 99 Intake & Output 05/24/18 05/25/18 05/25/18 18:59 06:59 18:59 Intake Total 1000 / 1000 Balance 1000 / 1000 Weight 71 kg Intake: IV 1000 / 1000 Narrative: GENERAL: Awake and alert. No acute distress. Cooperative. HEAD: Normocephalic. Atraumatic. EYES: Pupils equal round and reactive to light bilaterally. No scleral icterus. ENT: Moist oral mucosa. NECK: Trachea midline. CHEST: Lungs clear to auscultation bilaterally with no wheezing or rhonchi. No respiratory distress. CARDIOVASCULAR: Regular rate and rhythm. ABDOMEN: Mild diffuse tenderness to palpation. Tenderness is no worse in the right lower abdomen. Soft, nondistended. EXTREMITIES: No cyanosis or edema. SKIN: Warm, dry, nonjaundiced. Results - Labs 05/25/18 05:49 05/24/18 22:15 Abnormal lab results 05/24/18 05/24/18 05/25/18 Range/Units 22:15 22:15 05:49 WBC 13.6 H D 12.2 H (4.0-11.0) th/mm3 RBC 3.21 L 2.89 L (4.00-5.30) mil/mm3 Hgb 10.0 L 9.1 L (11.6-15.3) gm/dL Hct 29.7 L 26.7 L (35.0-46.0) % MPV 6.9 L (7.0-11.0) fL Neut % (Auto) 94.5 H 90.7 H (16.0-70.0) % Lymph % (Auto) 3.8 L 3.1 L (9.0-44.0) % Neut # (Auto) 12.8 H 11.1 H (1.8-7.7) th/mm3 Lymph # (Auto) 0.5 L 0.4 L (1.0-4.8) th/mm3 Band Neuts % (Manual) 21 H (0-6) % Lymphocytes % (Manual) 2 L (9-44) % Metamyelocytes % (Man) 4 H (0-1) % Myelocytes % (Man) 1 H (0-0) % Abs Neuts (Manual) 12.9 H (1.8-7.7) th/mm3 Toxic Granulation 2+ H (None) Random Glucose 141 H (74-106) mg/dL Diabetes panel 05/24/18 Range/Units 22:15 Sodium 139 (136-145) meq/L Potassium 4.1 (3.5-5.1) meq/L Chloride 104 (98-107) meq/L Carbon Dioxide 27.5 (21.0-32.0) meq/L BUN 12 (7-18) mg/dL Creatinine 0.59 (0.50-1.00) mg/dL Calcium 8.5 D (8.5-10.1) mg/dL AST 17 (15-37) U/L ALT 18 (10-53) U/L Alkaline Phosphatase 102 (45-117) U/L Total Protein 7.4 D (6.4-8.2) g/dL Albumin 3.7 (3.4-5.0) g/dL Calcium panel 05/24/18 Range/Units 22:15 Calcium 8.5 D (8.5-10.1) mg/dL Albumin 3.7 (3.4-5.0) g/dL Pituitary panel 05/24/18 Range/Units 22:15 Sodium 139 (136-145) meq/L Potassium 4.1 (3.5-5.1) meq/L Chloride 104 (98-107) meq/L Carbon Dioxide 27.5 (21.0-32.0) meq/L BUN 12 (7-18) mg/dL Creatinine 0.59 (0.50-1.00) mg/dL Calcium 8.5 D (8.5-10.1) mg/dL Adrenal panel 05/24/18 Range/Units 22:15 Sodium 139 (136-145) meq/L Potassium 4.1 (3.5-5.1) meq/L Chloride 104 (98-107) meq/L Carbon Dioxide 27.5 (21.0-32.0) meq/L BUN 12 (7-18) mg/dL Creatinine 0.59 (0.50-1.00) mg/dL Calcium 8.5 D (8.5-10.1) mg/dL Total Bilirubin 0.2 (0.2-1.0) mg/dL AST 17 (15-37) U/L ALT 18 (10-53) U/L Alkaline Phosphatase 102 (45-117) U/L Total Protein 7.4 D (6.4-8.2) g/dL Albumin 3.7 (3.4-5.0) g/dL All other labs normal. - Imaging CT scan - abdomen: report reviewed, image reviewed CT scan - pelvis: report reviewed, image reviewed Assessment and Plan - Assessment (1) Abdominal pain Code(s): R10.9 - Unspecified abdominal pain Status: Acute (2) Nausea Code(s): R11.0 - Nausea Status: Acute (3) Breast cancer Code(s): C50.919 - Malignant neoplasm of unspecified site of unspecified female breast Status: Acute - Plan 38-year-old female undergoing chemotherapy for breast cancer with epigastric abdominal pain and nausea. Dilated appendix seen on CT abdomen and pelvis. It does not appear that the patient has appendicitis based on her history and physical. More likely this could be gallbladder disease versus gastritis or peptic ulcer. Check gallbladder ultrasound. Start Protonix and Carafate and consult gastroenterology. Consult oncology to recent chemotherapy and chemotherapy related symptoms as well as leukocytosis.
--- NOTE | 2018-05-25 12:27 | US ---
EXAM DATE: 05/25/2018 12:20 PM EDT AGE/SEX: 38 years / Female INDICATIONS: Right upper quadrant pain. CLINICAL DATA: This is the patient's initial encounter. Patient reports that signs and symptoms have been present for 1 week and indicates a pain score of 2/10. MEDICAL/SURGICAL HISTORY: . Breast cancer. Currently on chemotherapy. . section. COMPARISON: [facility], CT ABDOMEN & PELVIS W CONTRAST, 05/25/2018. [facility], CT ABDOMEN AND PELVIS W/ CONTRA ST, 04/08/2018. . MEASUREMENTS: Liver:__ 15.0 cm. Common Bile Duct:__ 5mm. FINDINGS: Liver: Normal echotexture without focal lesion or ductal dilatation. Portal Vein: Hepatopedal flow seen in portal vein. Common Duct: No intraluminal mass or stone visualized. Gallbladder: Demonstrates no wall thickening or pericholecystic fluid. No stones visualized. Pancreas: The visualized portions are within normal limits Right Kidney: Normal echotexture and cortical thickness. No mass or hydronephrosis. Other: No evidence of fluid. CONCLUSION: 1. Normal exam Electronically signed by: Eryn Ramirez MD 05/25/2018 12:25 PM EDT
[2018-05-25] MEDS: Pantoprazole Inj 40 MG Vial IV.PUSH SCH (13:00)
[2018-05-25] MEDS: Piperacil/Tazo 4.5 GM Premix 4.5 GM/100 ML BAG IV.SIG SCH ×3 (13:00→23:27)
[2018-05-25] MEDS: Sucralfate Liq 1 GM/10 ML UDC PO SCH ×2 (13:00→20:37)
--- NOTE | 2018-05-25 14:05 | P.CONGI ---
History of Present Illness Consult date: 05/25/18 Consult reason: Epigastric pain abdominal pain Chief complaint: Intractable abdominal pain History of Present Illness: This is a 38-year-old female who entered the hospital today on 05/25/2018 with uncontrolled epigastric pain patient's also had symptoms of nausea associated with epigastric pain onset of symptoms approximately 1 week ago patient did note a continuous 6 hour period of epigastric pain and nausea which was no relieving factors with any nausea meds the patient already had in the house. patient described it as a non-burning type of pain but dull ache. Patient denied any emesis but felt like she could have thrown up at any time patient also notes some upper esophageal pain and pressure when swallowing aggregating factors thick bread or pieces of meat. Patient does not have sensation of dysphasia but more so pain with swallowing. Patient denies any lower abdominal pain, no diarrhea no constipation. Patient does note that she has had a change in her bowel habits over the past 2 weeks to a light brown color large amount of solid stool at one time and initial pain with defecation with small traces of blood noted initially. Patient states her bowels do move daily and/or every other day. Patient attempts to have no straining but does have an occasional strain initially. Patient has no history of EGD or colonoscopy but does have a history of sister with Crohn's disease. Gastroenterology was consulted to assist with her symptoms and plan of care. According to the record in patient' s history she was diagnosed with breast cancer on 03/26/2018 and has been through 4 rounds of chemotherapy. Current hemoglobin 9.1, WBC count 12.2 leukocytosis currently unspecified, bilirubin and LFTs normal range, platelets normal range. CT scan showed 1.7 cm tubular structure adjacent to the inferior cecum which could have represented dilated appendix, inflamed appendix cannot be excluded. Mild trace of free fluid on the dependent right side. Surgical consult was obtained. Differential diagnosis included gallbladder disease gastritis or peptic ulcer disease. Patient is alert answers simple questions in a good historian. Family is supportive and in room. Review of Systems All other systems reviewed negative except as stated in HPI PMFSH - History History Provided By: Patient - Medical History Medical History: Medical History (Last Reviewed 05/25/18 @ 08:04 by RIGO Carter) Breast cancer - Surgical History Surgical History: Surgical History (Last Updated 08/04/18 @ 08:04 by RIGO Carter) History of History of tonsillectomy - Family History Family History: Family History (Last Updated 05/25/18 @ 08:05 by RIGO Carter) Father Heart disease COPD (chronic obstructive pulmonary disease) Diabetes - Tobacco History Smoking Status: Never smoker - Alcohol History How Often Do You Have a Drink Containing Alcohol: Never - Substance Use History Substance History: No History of Abuse - Travel History Recent Travel in the [place] Within the Last 8 Weeks: No Recent Travel Out of the Country Within the Last 8 Weeks: No - Immunization History Tetanus Immunization: >5 Years Hx Influenza Vaccine This Season: No Medications and Allergies Active Medications: Active Medications Acetaminophen (Tylenol) 650 mg PO Q4H PRN PRN Reason: Temp > 100.4 Al Hydroxide/Mg Hydroxide (Milk Of Magnesia Liq) 30 ml PO Q12H PRN PRN Reason: Mild Constipation Bisacodyl (Dulcolax Supp) 10 mg RECTAL DAILY PRN PRN Reason: SEVERE CONSITIPATION Sodium Chloride (Ns Inj) 1,000 mls @ 100 mls/hr IV.CONT .Q10H [facility] Last Admin: 05/25/18 06:40 Dose: 100 mls/hr Piperacillin/Tazobactam/Dextrose (Zosyn 4.5 Gm Premix) 4.5 gm in 100 mls @ 200 mls/hr IV.SIG Q6H [facility] Last Admin: 05/25/18 13:00 Dose: 200 mls/hr Lactulose (Lactulose Liq) 30 ml PO DAILY PRN PRN Reason: SEVERE CONSITIPATION Morphine Sulfate (Morphine Inj) 2 mg IV.PUSH Q4H PRN PRN Reason: ABDOMINAL PAIN Ondansetron HCl (Zofran Inj) 4 mg IV.PUSH Q6H PRN PRN Reason: NAUSEA OR VOMITING Pantoprazole Sodium (Protonix Inj) 40 mg IV.PUSH Q24H [facility] Last Admin: 05/25/18 13:00 Dose: 40 mg Prochlorperazine Edisylate (Compazine Inj) 10 mg IV.PUSH Q6H PRN PRN Reason: NAUSE/VOMITING Senna/Docusate Sodium (Hayley-Colace) 1 tab PO BID [facility] Sennosides (Senokot) 17.2 mg PO Q12H PRN PRN Reason: Moderate Constipation Sodium Chloride (Ns Flush) 2 ml IV.FLUSH PRN PRN PRN Reason: FLUSH AFTER USING IV ACCESS Sucralfate (Carafate Liq) 1 gm PO Q6HR [facility] Last Admin: 05/25/18 13:00 Dose: 1 gm Temazepam (Restoril) 15 mg PO HS PRN PRN Reason: INSOMNIA Allergies Allergy/AdvReac Type Severity Reaction Status Date / Time No Known Allergies Allergy Unknown Uncoded 04/10/18 07:27 Home Medications Medication Instructions Recorded Confirmed Type aprepitant [Emend] See Label Instructions .ROUTE 05/25/18 History .COMPLEX pegfilgrastim [Neulasta] See Label Instructions .ROUTE 05/25/18 05/25/18 History .COMPLEX Exam Vital signs: Vital Signs 05/24/18 21:28 05/24/18 22:19 05/25/18 04:46 Temperature 98.2 F 98.6 F Pulse Rate 88 78 Respiratory Rate 20 16 Blood Pressure 125/75 109/62 Pulse Oximetry 99 98 100 05/25/18 08:19 05/25/18 10:00 05/25/18 11:00 Temperature 98.6 F 98.2 F Pulse Rate 82 72 Respiratory Rate 16 16 Blood Pressure 111/72 119/81 Pulse Oximetry 99 100 100 Intake & Output 05/24/18 05/25/18 05/25/18 18:59 06:59 18:59 Intake Total 1000 / 1000 Balance 1000 / 1000 Weight 71 kg Intake: IV 1000 / 1000 - Constitutional mild distress, average body habitus - Routine HEENT Exam Head: Present: normocephalic (No hair) ENT: Present: mucous membranes dry - Routine Neck Exam Present: supple - Routine Cardiovascular Exam Present: RRR - Routine Abdominal Exam Present: soft (Round, nondistended with soft bowel sounds, epigastric mild tenderness and gastric discomfort) - Routine Skin Exam Present: intact - Routine Neurological Exam Present: alert (Answer simple questions appropriately, good historian) Results - Labs CBC & Chem 7: 05/25/18 05:49 05/24/18 22:15 Labs: Laboratory Results - last 24 hr 05/24/18 05/24/18 05/25/18 22:15 22:15 05:49 WBC 13.6 H D 12.2 H RBC 3.21 L 2.89 L Hgb 10.0 L 9.1 L Hct 29.7 L 26.7 L MCV 92.6 92.5 MCH 31.2 31.4 MCHC 33.7 33.9 RDW 14.1 14.2 Plt Count 325 289 MPV 7.3 6.9 L Prelim Diff (Auto) Slide review pending Neut % (Auto) 94.5 H 90.7 H Lymph % (Auto) 3.8 L 3.1 L [place] % (Auto) 1.4 6.0 Eos % (Auto) 0.0 0.0 Baso % (Auto) 0.3 0.2 Neut # (Auto) 12.8 H 11.1 H Lymph # (Auto) 0.5 L 0.4 L [place] # (Auto) 0.2 0.7 Eos # (Auto) 0.0 0.0 Baso # (Auto) 0.0 0.0 WBC Differential Manual diff final . Seg Neuts % (Manual) 69 Band Neuts % (Manual) 21 H Lymphocytes % (Manual) 2 L Monocytes % (Manual) 3 Metamyelocytes % (Man) 4 H Myelocytes % (Man) 1 H Abs Neuts (Manual) 12.9 H Differential Comment . Auto diff final Toxic Granulation 2+ H Platelet Estimate Normal Platelet Morphology Normal Sodium 139 Potassium 4.1 Chloride 104 Carbon Dioxide 27.5 Anion Gap 8 BUN 12 Creatinine 0.59 Estimated GFR Greater than 89 Random Glucose 141 H Calcium 8.5 D Total Bilirubin 0.2 AST 17 ALT 18 Alkaline Phosphatase 102 Total Protein 7.4 D Albumin 3.7 Lipase 107 Urine Color Urine Clarity Urine pH Ur Specific [place] Urine Protein Urine Glucose (UA) Urine Ketones Urine Occult Blood Urine Nitrate Urine Bilirubin Urine Urobilinogen Ur Leukocyte Esterase Urine RBC Urine WBC Ur Squamous Epith Cells Micro UA Comment Urine Culture Comments 05/25/18 08:24 WBC RBC Hgb Hct MCV MCH MCHC RDW Plt Count MPV Prelim Diff (Auto) Neut % (Auto) Lymph % (Auto) [place] % (Auto) Eos % (Auto) Baso % (Auto) Neut # (Auto) Lymph # (Auto) [place] # (Auto) Eos # (Auto) Baso # (Auto) WBC Differential Seg Neuts % (Manual) Band Neuts % (Manual) Lymphocytes % (Manual) Monocytes % (Manual) Metamyelocytes % (Man) Myelocytes % (Man) Abs Neuts (Manual) Differential Comment Toxic Granulation Platelet Estimate Platelet Morphology Sodium Potassium Chloride Carbon Dioxide Anion Gap BUN Creatinine Estimated GFR Random Glucose Calcium Total Bilirubin AST ALT Alkaline Phosphatase Total Protein Albumin Lipase Urine Color Straw Urine Clarity Clear Urine pH 6.0 Ur Specific [place] 1.013 Urine Protein Negative Urine Glucose (UA) Negative Urine Ketones Negative Urine Occult Blood Negative Urine Nitrate Negative Urine Bilirubin Negative Urine Urobilinogen Less than 2 Ur Leukocyte Esterase Negative Urine RBC Less than 1 Urine WBC Less than 1 Ur Squamous Epith Cells 1 Micro UA Comment Culture not ind Urine Culture Comments Culture not ind - Imaging Impressions Gallbladder Ultrasound 05/25/18 00:00 CONCLUSION: 1. Normal exam Abdomen/Pelvis CT 05/25/18 00:18 CONCLUSION: 1. 1.7 cm tubular structure adjacent to the inferior cecum could represent a dilated appendix; inflamed appendix cannot be excluded. 2. Mild amount of free fluid in the dependent pelvis on the right side. Assessment and Plan (1) Epigastric abdominal pain Status: Acute Code(s): R10.13 - Epigastric pain (2) Abdominal pain Status: Acute Code(s): R10.9 - Unspecified abdominal pain (3) Nausea Status: Acute Code(s): R11.0 - Nausea (4) Breast cancer Status: Acute Code(s): C50.919 - Malignant neoplasm of unspecified site of unspecified female breast - Plan Epigastric and gastric abdominal pain, onset of symptoms approximately 1 week ago. With associated symptoms below. Nausea related to #1, onset of symptoms approximately 1 week ago. 6 hour onset of unrelieved symptoms with nausea and epigastric pain uncontrolled. Took her nausea medicine that she had at home and still was unrelieved. Dyspepsia, nonburning type symptoms but does note painful swallowing in the upper esophageal area and pressure with meats and thick bread. Does not feel like any meds or food is getting lodged. Constipation, large bulky light brown stools with painful defecation initially. Usually bowel movements are daily or every other day. Onset of symptoms 2 weeks with some occasional straining although she tries not to. She does note some bright red blood initially with stool. Current admission labs show hemoglobin 9.1 anemia probably acute on chronic disease WBC count 12.2 unspecified leukocytosis, bilirubin and LFTs normal and platelet count normal. CT shows 1.7 cm tubular structure adjacent to the inferior cecum which could be dilated appendix mild free fluid on the right side. Surgical consult has been obtained with differential diagnosis rule out of gallbladder disease gastritis or peptic ulcer disease. Ultrasound of the gallbladder normal exam on 05/25/2018 History of recent diagnosis of breast cancer on 03/26/2018 with chemotherapy treatments 4. Family history of sister with Crohn's disease patient had no previous EGD or colonoscopy. Patient does note positive APC gene and had been discussed colonoscopy in the future to rule out any polyps. Plan Diet clear liquids for now, check for toleration if no nausea vomiting can upgrade today Consent for EGD colonoscopy Sunday a.m. Clear liquid diet Sunday N.p.o. Sunday night Prep mag citrate with Dulcolax, Monitor labs with special attention to hemoglobin Supportive care Further recommendations to follow Patient was seen per myself and Dr. Gill, note was written on his behalf
[2018-05-25] MEDS: Senna/Docusate Sodium 8.6/50 MG Tablet PO SCH ×2 (20:38→22:09)
[2018-05-26] MEDS: Sucralfate Liq 1 GM/10 ML UDC PO SCH ×4 (00:10→17:37)
[2018-05-26] MEDS: Piperacil/Tazo 4.5 GM Premix 4.5 GM/100 ML BAG IV.SIG SCH ×3 (05:33→17:36)
--- NOTE | 2018-05-26 07:29 | MB ---
cc: Zuly Bob MD DATE: 05/25/2018 REASON FOR CONSULTATION: Consult requested by Dr. Shankar Walton, general surgeon, for evaluation of leukocytosis. HISTORY OF PRESENT ILLNESS: Oli is a pleasant 38-year-old white female. She is without any significant past medical history. The patient was in her usual status of health up until last February she found a lump in the right breast during the shower. She went to see her primary physician, Dr. Moore, who ordered a mammogram and the patient was found to have multifocal right breast cancer. She had biopsy of at least 2 out of 3 lumps in the right breast. One was moderately differentiated. The other one was poorly differentiated. HER-2/taisha antigen was negative. ER was negative, CO was weakly positive at 2%. This is considered to be essentially triple negative breast cancer. She also was found to have right axillary lymphadenopathy and the biopsy confirmed metastatic disease to the lymph node. She had a staging CAT scan of the chest, abdomen, pelvis, and a bone scan all were negative for metastatic disease. The patient was diagnosed with locally advanced multifocal right breast cancer stage III, triple negative. She was started on neoadjuvant Adriamycin and Cytoxan chemotherapy. The patient noticed significant decrease in size of the right breast mass after the first cycle. However, she had intractable nausea after the first cycle of chemotherapy, which was not relieved with the Compazine and Zofran. With the second cycle, the patient was prescribed Emend to control the nausea and vomiting. The patient stated that the Emend had worked and that had controlled the nausea and vomiting with the second and the third cycle. She also noticed that after the third cycle, the right breast mass has almost completely resolved and she was unable to feel the lump. She [facility] to get her fourth and final cycle of Adriamycin and Cytoxan dose-dense chemotherapy. The patient has been getting on-body Neulasta with each cycles of chemotherapy. She finished her chemotherapy approximately 3 o'clock yesterday and the on-body injector Neulasta was placed on and was supposed to fire the drug today around 3 p.m. The patient went home after the chemotherapy and noticed intractable nausea and severe epigastric pain. This was very unusual for the patient since she had Emend, which was not helping this time. She was advised to come to the emergency room. When patient came into the emergency room yesterday, her blood test showed a white count of 13.6, hemoglobin 10, platelet count 325. The differential count was significant for neutrophilia with absolute neutrophil count of 12,800 and absolute lymphocyte count was low at 500. She was also found to have 21% band, 4% metamyelocytes, 1% myelocytes, and toxic granulation of 2+. Comprehensive metabolic profile came back completely normal except the glucose was 141. The urinalysis was negative. She had a gallbladder ultrasound, which reported to be negative. CT of the abdomen and pelvis showed 1.7 cm tubular structure adjacent to the inferior cecum, could represent a dilated appendix and inflamed appendix cannot be excluded. Mild amount of free fluid in the dependent pelvis on the right side. General Surgery was consulted for possible appendicitis. Dr. Shankar Walton saw the patient and according to his notes he does not think that the patient has appendicitis. He thinks that the patient may have some gallbladder pathology or gastritis. GI was consulted. They have evaluated the patient and the plan is to do upper endoscopy for Sunday. 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 The patient has been on Protonix and Carafate started by Dr. Walton. The patient is still complaining of epigastric pain associated with nausea. She has no vomiting, no diarrhea or constipation. She denies any fever. She denies any gastroesophageal reflux disease symptoms. The rest of the review of systems is negative. PAST MEDICAL HISTORY: Recently diagnosed locally advanced, right breast cancer. PAST SURGICAL HISTORY: , tonsillectomy, Infusaport placement and right breast biopsy and right axillary lymph node biopsy. ALLERGIES: NONE REPORTED. MEDICATIONS: Prior to coming to the hospital were Emend and on-body Neulasta. FAMILY HISTORY: None for malignancy. SOCIAL HISTORY: The patient is . She has 2 children. She denies any smoking history or alcoholism. 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 PHYSICAL EXAMINATION: GENERAL: Reveals a well-developed, well-nourished white female, in no apparent distress. VITAL SIGNS: Temperature 98.2, heart rate 72, respiratory rate 16, blood pressure 119/81. HEENT: Alopecia noted from the chemotherapy. Pupils are equal and reactive to light. No oral lesions noted. NECK: No lymphadenopathy noted. LUNGS: Clear. No wheezing, rhonchi, or rales. HEART: Regular rate and rhythm. ABDOMEN: Soft. Tenderness noted in the epigastric area. EXTREMITIES: No pedal edema. NEUROLOGIC: Awake, alert, oriented x3. SKIN: No significant lesions noted. ASSESSMENT AND PLAN: 1. Multifocal locally advanced right breast cancer, triple negative, currently on neoadjuvant Adriamycin and Cytoxan dose-dense chemotherapy x4 cycles. The last chemotherapy was just yesterday. 2. Severe epigastric pain associated with nausea. 3. Tubular structure near the appendix, possibility of appendicitis. Dr. Walton is on the case. 4. Leukocytosis with neutrophilia bandemia, myelocytes, metamyelocytes, and toxic granulation. This is consistent with infection, although she does not have any fever. Her leukocytosis cannot be due to the Neulasta as she has on-body Neulasta, which was supposed to deliver the dose today at 3 p.m. The CBC was drawn last night at 22:15 when she came into the emergency room. This morning around 05:49, her CBC showed white count of 12.2, hemoglobin 9.1, and platelet count is 289. PLAN: I have reviewed her available records and I had an extensive discussion with the patient regarding the leukocytosis, epigastric pain, and nausea. Given the toxic granulation and 21% bandemia, I highly suspect that we are dealing with some sort of infection. Although, she does not have any fevers. The CAT scan of the abdomen and pelvis does show inflamed tubular structure near the appendix. The patient possibly could have appendicitis and she may be having a referred epigastric pain. Dr. Walton had been consulted and he is on the case. GI have been consulted as well and they have scheduled her to have upper endoscopy to evaluate for any gastritis or peptic ulcer disease and also colonoscopy due to her genetic test came back positive for APC gene mutation.. Her white count has come down since she is on the antibiotic Zosyn. White count has improved from yesterday and it was 13.6 and this morning 12.2. I expect her white count go up due to the Neulasta, which the dose was delivered at 3 p.m. today with on-body injector. My recommendation is to monitor her CBC and if her upper endoscopy comes back negative, then we need to evaluate for the appendicitis. The patient states that she was supposed to start weekly Taxol in 2-3 weeks. Certainly that could be deferred until her present situation resolves. Further recommendations based on her hospital stay. I will have her primary oncologist, Dr. Vanessa to follow her on Sunday. Thank you for asking my opinion. MD IRENE Montejo/jennifer/natasha , 12:11 AM , 12:32 AM MERI
--- NOTE | 2018-05-26 07:45 | P.PNIM ---
Subjective Interval history: Patient was seen and examined this morning. States that she feels like crap because of the recent chemo. The abdominal pain is much reduced and is down to 2 /10 over her stomach area. She last felt nauseated last night for which she was given Zofran. She was able to eat some yoghurt this morning and feels like she is about to have a bowel movement. She denies fever/chills, N/V, CP/SOB, and diarrhea. Physical Exam Vital signs: Vital Signs 05/25/18 08:19 05/25/18 10:00 05/25/18 11:00 Temperature 98.6 F 98.2 F Pulse Rate 82 72 Respiratory Rate 16 16 Blood Pressure 111/72 119/81 Pulse Oximetry 99 100 100 05/25/18 20:00 05/26/18 00:00 05/26/18 04:00 Temperature 98.3 F 98.0 F 98.4 F Pulse Rate 70 82 73 Respiratory Rate 16 16 16 Blood Pressure 100/60 104/60 96/57 L Pulse Oximetry 100 99 Intake & Output 05/25/18 05/26/18 05/26/18 18:59 06:59 18:59 Intake Total 100 / 100 1440 / 1440 Output Total 450 / 450 Balance 100 / 100 990 / 990 Weight 72 kg Intake: IV 100 / 100 1200 / 1200 NS Inj 1,000 ML @ 100 mls/hr IV 1000 / 1000 .CONT .Q10H [facility] Rx#:[id number] Zosyn 4.5 GM Premix 4.5 gm In 100 / 100 200 / 200 100 ml @ 200 mls/hr IV.SIG Q6H [facility] Rx#:[id number] Oral 240 / 240 Output: Urine 450 / 450 Other: Date of Last Bowel Movement 05/24/18 Narrative: GENERAL: Well-developed well-nourished. In no acute distress. SKIN: Warm and dry. No lesions noted. HEENT: Normocephalic. Pupils equal and round. Mucous membranes pink and moist. CARDIOVASCULAR: Regular rate and rhythm. No murmur appreciated. RESPIRATORY: No accessory muscle use. Clear to auscultation. Breath sounds equal bilaterally. GASTROINTESTINAL: Abdomen is tender in the epigastric area. No rebound tenderness. Soft, nondistended. MUSCULOSKELETAL: No obvious deformities. No clubbing or cyanosis. No edema. NEUROLOGICAL: Awake and alert. No focal neurological deficits. Moves upper and lower extremities spontaneously. Normal speech. PSYCHIATRIC: Appropriate mood and affect; insight and judgment normal. Results - Labs CBC & Chem 7: 05/26/18 09:20 05/26/18 09:20 Laboratory Results - last 24 hr 05/25/18 08:24 Urine Color Straw Urine Clarity Clear Urine pH 6.0 Ur Specific [place] 1.013 Urine Protein Negative Urine Glucose (UA) Negative Urine Ketones Negative Urine Occult Blood Negative Urine Nitrate Negative Urine Bilirubin Negative Urine Urobilinogen Less than 2 Ur Leukocyte Esterase Negative Urine RBC Less than 1 Urine WBC Less than 1 Ur Squamous Epith Cells 1 Micro UA Comment Culture not ind Urine Culture Comments Culture not ind - Imaging Impressions Gallbladder Ultrasound 05/25/18 00:00 CONCLUSION: 1. Normal exam Assessment and Plan - Assessment (1) Abdominal pain Code(s): R10.9 - Unspecified abdominal pain Status: Acute Plan: -Patient reports 2/10 abdominal pain improved from previous day - CT abd/pel was suspicious for dilated appendix -GS consulted but pt's exam and history not consistent with appendicitis - recommended GI consult - GI consulted -EGD and colonoscopy in the AM -CLD during the day, prep with mag citrate and dulcolax -NPO at midnight -Continue Protonix and Carafate - Continue Zosyn IV (2) Nausea Code(s): R11.0 - Nausea Status: Acute Plan: Improved -Continue Zofran as needed -Compazine on board if needed (3) Breast cancer Code(s): C50.919 - Malignant neoplasm of unspecified site of unspecified female breast Status: Acute Plan: Oncology on board - Patient completed her fourth and final cycle of Adriamycin and Cytoxan on Sunday - Manage symptoms as needed (4) Leukocytosis Code(s): D72.829 - Elevated white blood cell count, unspecified Status: Acute Plan: -Received Neulasta - WBC 34.1 today is expected - Oncology aware - Afebrile - Plan Code Status: Full code Discussed Condition With: Patient's nurse, patient (1) Abdominal pain Qualifiers: Abdominal location: epigastric Qualified Code(s): R10.13 - Epigastric pain
[2018-05-26 10:01] LABS: Baso # (Auto) 0.1 th/mm3 (0.0-0.2); Baso % (Auto) 0.2 % (0.0-2.0); Hematocrit 24.4 % (35.0-46.0); Hemoglobin 8.3 gm/dL (11.6-15.3); Lymph # (Auto) 0.5 th/mm3 (1.0-4.8); Lymph % (Auto) 1.6 % (9.0-44.0); Mean Corpuscular HGB Conc 33.9 % (32.0-36.0); Mean Corpuscular Hemoglobin 31.7 pg (27.0-34.0); Mean Corpuscular Volume 93.5 fL (80.0-100.0); Mean Platelet Volume 7.1 fL (7.0-11.0); Mono # (Auto) 0.6 th/mm3 (0.0-0.9); Mono % (Auto) 1.9 % (0.0-8.0); Neut # (Auto) 32.8 th/mm3 (1.8-7.7); Neut % (Auto) 96.3 % (16.0-70.0); Platelet Count 231 th/mm3 (150-450); Red Cell Distribution Width 15.4 % (11.6-17.2); White Blood Count 34.1 th/mm3 (4.0-11.0)
[2018-05-26] MEDS: Pantoprazole Inj 40 MG Vial IV.PUSH SCH (10:20)
[2018-05-26] MEDS: Senna/Docusate Sodium 8.6/50 MG Tablet PO SCH (10:21)
[2018-05-26 10:33] LABS: Alanine Aminotransferase 13 U/L (10-53); Albumin 2.8 g/dL (3.4-5.0); Alkaline Phosphatase 77 U/L (45-117); Anion Gap 10 meq/L (5-15); Aspartate Aminotransferase 14 U/L (15-37); Blood Urea Nitrogen 11 mg/dL (7-18); Carbon Dioxide 25.5 meq/L (21.0-32.0); Chloride 109 meq/L (98-107); Glomerular Filtration Rate Greater Than 89 mL/min (>89); Glucose,Random 99 mg/dL (74-106); Potassium 3.3 meq/L (3.5-5.1); Sodium 144 meq/L (136-145); Total Protein 5.5 g/dL (6.4-8.2)
[2018-05-26 10:36] LABS: Lymphocytes 2 % (9-44); Monocytes 3 % (0-8); Platelet Estimate Normal (Normal); Platelet Morphology Normal (Normal); Toxic Granulation 1+
[2018-05-26 10:37] LABS: Ovalocytes 1+
--- NOTE | 2018-05-26 10:40 | P.PNONC ---
Subjective Interval history: Afebrile. The patient reports feeling overall "crappy". She relates this to her chemotherapy. She reports that her abdominal pain has improved since admission. She was able to eat some yogurt this a.m. She has a pending endoscopy and colonoscopy scheduled for tomorrow and it appears that she will start bowel prepping at 1500 today. She has no other complaints at this time. Objective Vital Signs/Intake & Output: Vital Signs 05/25/18 11:00 05/25/18 20:00 05/26/18 00:00 Temperature 98.2 F 98.3 F 98.0 F Pulse Rate 72 70 82 Respiratory Rate 16 16 16 Blood Pressure 119/81 100/60 104/60 Pulse Oximetry 100 100 05/26/18 04:00 05/26/18 08:00 Temperature 98.4 F 98.2 F Pulse Rate 73 81 Respiratory Rate 16 16 Blood Pressure 96/57 L 95/71 L Pulse Oximetry 99 97 Intake & Output 05/25/18 05/26/18 05/26/18 18:59 06:59 18:59 Intake Total 100 / 100 1440 / 1440 Output Total 450 / 450 Balance 100 / 100 990 / 990 Weight 72 kg Intake: IV 100 / 100 1200 / 1200 NS Inj 1,000 ML @ 100 mls/hr IV 1000 / 1000 .CONT .Q10H FATOU Rx#:[id number] Zosyn 4.5 GM Premix 4.5 gm In 100 / 100 200 / 200 100 ml @ 200 mls/hr IV.SIG Q6H FATOU Rx#:[id number] Oral 240 / 240 Output: Urine 450 / 450 Other: Date of Last Bowel Movement 05/24/18 05/24/18 Result Diagrams: 05/26/18 09:20 05/26/18 09:20 Laboratory Results: Laboratory Results - last 24 hr 05/26/18 09:20 WBC 34.1 H RBC 2.60 L Hgb 8.3 L Hct 24.4 L MCV 93.5 MCH 31.7 MCHC 33.9 RDW 15.4 Plt Count 231 MPV 7.1 Prelim Diff (Auto) Slide review pending Neut % (Auto) 96.3 H Lymph % (Auto) 1.6 L [place] % (Auto) 1.9 Eos % (Auto) 0.0 Baso % (Auto) 0.2 Neut # (Auto) 32.8 H Lymph # (Auto) 0.5 L [place] # (Auto) 0.6 Eos # (Auto) 0.0 Baso # (Auto) 0.1 Differential Comment . Imaging Studies: Impressions Gallbladder Ultrasound 05/25/18 00:00 CONCLUSION: 1. Normal exam Medications: Active Medications Generic Name Dose Route Start Last Admin Trade Name Freq PRN Reason Stop Dose Admin Sodium Chloride 1,000 mls @ 100 mls/hr 05/25/18 06:30 05/25/18 23:27 Ns Inj IV.CONT 100 mls/hr .Q10H FATOU Administration Piperacillin/Tazobactam/Dextrose 4.5 gm in 100 mls @ 200 mls/hr 05/25/18 12: 00 05/26/18 05:33 Zosyn 4.5 Gm Premix IV.SIG 100 mls/hr Q6H FATOU Administration Ondansetron HCl 4 mg 05/25/18 06:21 05/25/18 23:30 Zofran Inj IV.PUSH 4 mg Q6H PRN Administration NAUSEA OR VOMITING Pantoprazole Sodium 40 mg 05/25/18 11:00 05/26/18 10:20 Protonix Inj IV.PUSH 40 mg Q24H FATOU Administration Senna/Docusate Sodium 1 tab 05/25/18 09:00 05/26/18 10:21 Hayley-Colace PO Not Given BID FATOU Sucralfate 1 gm 05/25/18 12:00 05/26/18 05:34 Carafate Liq PO 1 gm Q6HR FATOU Administration Objective Remarks: GENERAL: Well-nourished, well-developed young female patient. Lying in bed, in no acute distress. SKIN: Warm and dry. HEAD: Normocephalic. EYES: No scleral icterus. No injection or drainage. NECK: Supple, trachea midline. CARDIOVASCULAR: Regular rate and rhythm without murmurs. RESPIRATORY: Posterior breath sounds clear, equal bilaterally. No accessory muscle use. GASTROINTESTINAL: Abdomen soft, non-tender, nondistended. EXTREMITIES: No cyanosis, or edema. MUSCULOSKELETAL: Adequate muscle tone. NEUROLOGICAL: No obvious focal deficit. Awake, alert, and oriented x3. PSYCHIATRIC: Appropriate mood and affect; insight and judgment normal. Assessment/Plan - Plan This is a pleasant 38-year-old female patient, with a history of right triple negative breast cancer stage III. She has been receiving new adjuvant chemotherapy Adriamycin and Cytoxan. She completed her fourth and final cycle on Sunday. Neulasta was placed at 1500. The patient presented to the emergency department this admission with increasing nausea and epigastric pain. She was found to have leukocytosis, toxic granulation with 21% bandemia. Plan: 1. Breast cancer. Patient completed her fourth and final cycle of Adriamycin and Cytoxan on Sunday. 2. Abdominal pain with CT abdomen showing a 1.7 cm tubular structure adjacent to the inferior cecum could represent a dilated appendix; inflamed appendix cannot be excluded. Mild amount of free fluid in the dependent pelvis on the right side. An ultrasound of her gallbladder showed normal findings. GI has been consulted and are planning for an endoscopy and colonoscopy on Sunday due to the patient having the APC gene. 3. Leukocytosis. Differential is pending. Her white count today has increased to 34.1, however, this was expected secondary to Neulasta admitted. She continues on Zosyn. - Attending Statement The exam, history, and the medical decision-making described in the above note were completed with the assistance of the mid-level provider. I reviewed and agree with the findings presented. I attest that I had a [id number] encounter with the patient on the same day, and personally performed and documented my assessment and findings in the medical record. Patient states that her epigastric pain and nausea have improved compared to yesterday. But she is still feeling sick. Patient will have EGD and colonoscopy tomorrow. Patient has severe leukocytosis and now this is from the neulasta which she had it yesterday. Discussed with the patient and at bedside. Dr. Vanessa will follow her tomorrow morning
--- NOTE | 2018-05-26 12:04 | P.PNGI ---
Physical Exam Vital signs: Vital Signs 05/25/18 20:00 05/26/18 00:00 05/26/18 04:00 Temperature 98.3 F 98.0 F 98.4 F Pulse Rate 70 82 73 Respiratory Rate 16 16 16 Blood Pressure 100/60 104/60 96/57 L Pulse Oximetry 100 99 05/26/18 08:00 Temperature 98.2 F Pulse Rate 81 Respiratory Rate 16 Blood Pressure 95/71 L Pulse Oximetry 97 Intake & Output 05/25/18 05/26/18 05/26/18 18:59 06:59 18:59 Intake Total 100 / 100 1440 / 1440 Output Total 450 / 450 Balance 100 / 100 990 / 990 Weight 72 kg Intake: IV 100 / 100 1200 / 1200 NS Inj 1,000 ML @ 100 mls/hr IV 1000 / 1000 .CONT .Q10H FATOU Rx#:[id number] Zosyn 4.5 GM Premix 4.5 gm In 100 / 100 200 / 200 100 ml @ 200 mls/hr IV.SIG Q6H FATOU Rx#:[id number] Oral 240 / 240 Output: Urine 450 / 450 Other: Date of Last Bowel Movement 05/24/18 05/24/18 <Zoraida Bazan M - Last Filed: 05/26/18 14:04> Vital signs: Vital Signs 05/25/18 20:00 05/26/18 00:00 05/26/18 04:00 Temperature 98.3 F 98.0 F 98.4 F Pulse Rate 70 82 73 Respiratory Rate 16 16 16 Blood Pressure 100/60 104/60 96/57 L Pulse Oximetry 100 99 05/26/18 08:00 05/26/18 12:00 Temperature 98.2 F 98.5 F Pulse Rate 81 83 Respiratory Rate 16 16 Blood Pressure 95/71 L 110/67 Pulse Oximetry 97 99 Intake & Output 05/25/18 05/26/18 05/26/18 18:59 06:59 18:59 Intake Total 100 / 100 1540 / 1540 Output Total 450 / 450 Balance 100 / 100 1090 / 1090 Weight 72 kg Intake: IV 100 / 100 1300 / 1300 NS Inj 1,000 ML @ 100 mls/hr IV 1000 / 1000 .CONT .Q10H FATOU Rx#:[id number] Zosyn 4.5 GM Premix 4.5 gm In 100 / 100 300 / 300 100 ml @ 200 mls/hr IV.SIG Q6H FATOU Rx#:[id number] Oral 240 / 240 Output: Urine 450 / 450 Other: Date of Last Bowel Movement 05/24/18 05/24/18 <Glenys Villaseñor - Last Filed: 05/26/18 14:36> Results - Labs CBC & Chem 7: 05/26/18 09:20 05/26/18 09:20 Laboratory Results - last 24 hr 05/26/18 05/26/18 09:20 09:20 WBC 34.1 H RBC 2.60 L Hgb 8.3 L Hct 24.4 L MCV 93.5 MCH 31.7 MCHC 33.9 RDW 15.4 Plt Count 231 MPV 7.1 Prelim Diff (Auto) Slide review pending Neut % (Auto) 96.3 H Lymph % (Auto) 1.6 L [place] % (Auto) 1.9 Eos % (Auto) 0.0 Baso % (Auto) 0.2 Neut # (Auto) 32.8 H Lymph # (Auto) 0.5 L [place] # (Auto) 0.6 Eos # (Auto) 0.0 Baso # (Auto) 0.1 WBC Differential Manual diff final Seg Neuts % (Manual) 79 H Band Neuts % (Manual) 15 H Lymphocytes % (Manual) 2 L Monocytes % (Manual) 3 Basophils % (Manual) 1 Abs Neuts (Manual) 32.1 H Differential Comment . Toxic Granulation 1+ H Platelet Estimate Normal Platelet Morphology Normal Ovalocytes 1+ H Sodium 144 Potassium 3.3 L D Chloride 109 H Carbon Dioxide 25.5 Anion Gap 10 BUN 11 Creatinine 0.65 Estimated GFR Greater than 89 Random Glucose 99 Calcium 8.0 L Total Bilirubin 0.3 AST 14 L ALT 13 Alkaline Phosphatase 77 Total Protein 5.5 L D Albumin 2.8 L D - Imaging Impressions Gallbladder Ultrasound 05/25/18 00:00 CONCLUSION: 1. Normal exam <Zoraida Bazan - Last Filed: 05/26/18 14:04> - Labs CBC & Chem 7: 05/26/18 09:20 05/26/18 09:20 Laboratory Results - last 24 hr 05/26/18 05/26/18 09:20 09:20 WBC 34.1 H RBC 2.60 L Hgb 8.3 L Hct 24.4 L MCV 93.5 MCH 31.7 MCHC 33.9 RDW 15.4 Plt Count 231 MPV 7.1 Prelim Diff (Auto) Slide review pending Neut % (Auto) 96.3 H Lymph % (Auto) 1.6 L [place] % (Auto) 1.9 Eos % (Auto) 0.0 Baso % (Auto) 0.2 Neut # (Auto) 32.8 H Lymph # (Auto) 0.5 L [place] # (Auto) 0.6 Eos # (Auto) 0.0 Baso # (Auto) 0.1 WBC Differential Manual diff final Seg Neuts % (Manual) 79 H Band Neuts % (Manual) 15 H Lymphocytes % (Manual) 2 L Monocytes % (Manual) 3 Basophils % (Manual) 1 Abs Neuts (Manual) 32.1 H Differential Comment . Toxic Granulation 1+ H Platelet Estimate Normal Platelet Morphology Normal Ovalocytes 1+ H Sodium 144 Potassium 3.3 L D Chloride 109 H Carbon Dioxide 25.5 Anion Gap 10 BUN 11 Creatinine 0.65 Estimated GFR Greater than 89 Random Glucose 99 Calcium 8.0 L Total Bilirubin 0.3 AST 14 L ALT 13 Alkaline Phosphatase 77 Total Protein 5.5 L D Albumin 2.8 L D <Glenys Villaseñor - Last Filed: 05/26/18 14:36> Assessment and Plan (1) Epigastric abdominal pain Status: Acute Code(s): R10.13 - Epigastric pain (2) Abdominal pain Status: Acute Code(s): R10.9 - Unspecified abdominal pain (3) Nausea Status: Acute Code(s): R11.0 - Nausea (4) Breast cancer Status: Acute Code(s): C50.919 - Malignant neoplasm of unspecified site of unspecified female breast - Plan Epigastric and gastric abdominal pain, onset of symptoms approximately 1 week ago. With associated symptoms below. Nausea related to #1, onset of symptoms approximately 1 week ago. 6 hour onset of unrelieved symptoms with nausea and epigastric pain uncontrolled. Took her nausea medicine that she had at home and still was unrelieved. Dyspepsia, nonburning type symptoms but does note painful swallowing in the upper esophageal area and pressure with meats and thick bread. Does not feel like any meds or food is getting lodged. Constipation, large bulky light brown stools with painful defecation initially. Usually bowel movements are daily or every other day. Onset of symptoms 2 weeks with some occasional straining although she tries not to. She does note some bright red blood initially with stool. Current admission labs show hemoglobin 9.1 anemia probably acute on chronic disease WBC count 12.2 unspecified leukocytosis, bilirubin and LFTs normal and platelet count normal. CT shows 1.7 cm tubular structure adjacent to the inferior cecum which could be dilated appendix mild free fluid on the right side. Surgical consult has been obtained with differential diagnosis rule out of gallbladder disease gastritis or peptic ulcer disease. Ultrasound of the gallbladder normal exam on 05/25/2018 History of recent diagnosis of breast cancer on 03/26/2018 with chemotherapy treatments 4. Family history of sister with Crohn's disease patient had no previous EGD or colonoscopy. Patient does note positive APC gene and had been discussed colonoscopy in the future to rule out any polyps. 05/26/2018 patient is resting in the bed no visitors currently in the room. Patient does note some mild nausea but no obvious vomiting. Still notes some dull mild epigastric/gastric abdominal discomfort that radiates into the right upper quadrant. Discussed with her plan for EGD and colonoscopy in the morning and she is still agreeable. Current hemoglobin 8.3 which is a decrease in her anemia over the past 24 hours but could be related to some hydration. Encourage patient to take is much clear liquids today as she can tolerate. Plan Diet clear liquids Consent for EGD colonoscopy Sunday a.m. N.p.o. Sunday night Prep mag citrate with Dulcolax, PPI Antiemetics Monitor labs with special attention to hemoglobin Supportive care Further recommendations to follow Patient was seen per myself and Dr. villaseñor, note was written on his behalf <Zoraida Bazan - Last Filed: 05/26/18 14:04> (1) Epigastric abdominal pain Status: Acute Code(s): R10.13 - Epigastric pain (2) Abdominal pain Status: Acute Code(s): R10.9 - Unspecified abdominal pain (3) Nausea Status: Acute Code(s): R11.0 - Nausea (4) Breast cancer Status: Acute Code(s): C50.919 - Malignant neoplasm of unspecified site of unspecified female breast - Plan Seen and examined with [employer], egd/colonoscopy planned for tomorrow. Discussed with family at the bedside. - Attending Attestation The exam, history, and the medical decision-making described in the above note were completed with the assistance of the mid-level provider. I reviewed and agree with the findings presented. I attest that I had a [id number] encounter with the patient on the same day, and personally performed and documented my assessment and findings in the medical record. <Glenys Villaseñor - Last Filed: 05/26/18 14:36> <Zoraida Bazan - Last Filed: 05/26/18 14:04> (2) Abdominal pain Qualifiers: Abdominal location: epigastric Qualified Code(s): R10.13 - Epigastric pain <Glenys Villaseñor - Last Filed: 05/26/18 14:36> (2) Abdominal pain Qualifiers: Abdominal location: epigastric Qualified Code(s): R10.13 - Epigastric pain
--- NOTE | 2018-05-26 14:05 | P.PNGS ---
Subjective Interval history: Abdominal pain much better. Tolerating liquids. Physical Exam Vital signs: Vital Signs 05/25/18 20:00 05/26/18 00:00 05/26/18 04:00 Temperature 98.3 F 98.0 F 98.4 F Pulse Rate 70 82 73 Respiratory Rate 16 16 16 Blood Pressure 100/60 104/60 96/57 L Pulse Oximetry 100 99 05/26/18 08:00 05/26/18 12:00 Temperature 98.2 F 98.5 F Pulse Rate 81 83 Respiratory Rate 16 16 Blood Pressure 95/71 L 110/67 Pulse Oximetry 97 99 Intake & Output 05/25/18 05/26/18 05/26/18 18:59 06:59 18:59 Intake Total 100 / 100 1540 / 1540 Output Total 450 / 450 Balance 100 / 100 1090 / 1090 Weight 72 kg Intake: IV 100 / 100 1300 / 1300 NS Inj 1,000 ML @ 100 mls/hr IV 1000 / 1000 .CONT .Q10H FATOU Rx#:[id number] Zosyn 4.5 GM Premix 4.5 gm In 100 / 100 300 / 300 100 ml @ 200 mls/hr IV.SIG Q6H FATOU Rx#:[id number] Oral 240 / 240 Output: Urine 450 / 450 Other: Date of Last Bowel Movement 05/24/18 05/24/18 Narrative: Abd: very mild epigastric ttp, otherwise soft ntd Assessment and Plan - Assessment (1) Abdominal pain Code(s): R10.9 - Unspecified abdominal pain Status: Acute (2) Nausea Code(s): R11.0 - Nausea Status: Acute (3) Breast cancer Code(s): C50.919 - Malignant neoplasm of unspecified site of unspecified female breast Status: Acute - Plan 38-year-old female undergoing chemotherapy for breast cancer with epigastric abdominal pain and nausea. Dilated appendix seen on CT abdomen and pelvis. It does not appear that the patient has appendicitis based on her history and physical. More likely this could be gallbladder disease versus gastritis or peptic ulcer. Pain improving. Suspect gastritis but she will have endoscopy tomorrow to eval. No evidence of appendicitis. I will sign off. May benefit from PPI/ carafate as outpatient. (1) Abdominal pain Qualifiers: Abdominal location: epigastric Qualified Code(s): R10.13 - Epigastric pain
[2018-05-26] MEDS ORDERED: Magnesium Citrate Liq 300 ML Bottle PO ONE ×2 (15:00→17:00)
[2018-05-26] MEDS: Potassium Chloride 25 MEQ Effervescent Tablet PO ONE ×2 (15:09→18:56)
[2018-05-26] MEDS: Sod Chloride 0.9% Inj 1,000 ML IV.CONT SCH (17:37)
[2018-05-26] MEDS ORDERED: LORazepam 0.5 MG Tablet PO PRN (18:15)
[2018-05-27] MEDS: Sucralfate Liq 1 GM/10 ML UDC PO SCH ×3 (00:13→15:09)
[2018-05-27] MEDS: Piperacil/Tazo 4.5 GM Premix 4.5 GM/100 ML BAG IV.SIG SCH ×3 (00:14→15:11)
[2018-05-27] MEDS: Sod Chloride 0.9% Inj 1,000 ML IV.CONT SCH ×2 (00:14→02:26)
[2018-05-27] MEDS: Senna/Docusate Sodium 8.6/50 MG Tablet PO SCH ×2 (00:14→15:09)
[2018-05-27] MEDS ORDERED: Chlorhexidine Gluconate 2% 1 Pack (2 Cloths) TOPICAL SCH (01:00)
[2018-05-27] MEDS ORDERED: Sodium Chlor 0.9% Inj 500 ML IV.SIG SCH (01:00)
[2018-05-27] MEDS ORDERED: Metoprolol Tartrate 25 MG Tablet PO SCH (01:00)
[2018-05-27 05:57] LABS: Hematocrit 26.7 % (35.0-46.0); Hemoglobin 9.2 gm/dL (11.6-15.3); Mean Corpuscular HGB Conc 34.5 % (32.0-36.0); Mean Corpuscular Hemoglobin 31.9 pg (27.0-34.0); Mean Corpuscular Volume 92.6 fL (80.0-100.0); Mean Platelet Volume 6.8 fL (7.0-11.0); Platelet Count 254 th/mm3 (150-450); Red Blood Count 2.88 mil/mm3 (4.00-5.30); Red Cell Distribution Width 14.9 % (11.6-17.2); White Blood Count 42.7 th/mm3 (4.0-11.0)
[2018-05-27 06:06] LABS: Anion Gap 5 meq/L (5-15); Blood Urea Nitrogen 10 mg/dL (7-18); Calcium 8.1 mg/dL (8.5-10.1); Chloride 110 meq/L (98-107); Glomerular Filtration Rate Greater Than 89 mL/min (>89); Glucose,Random 91 mg/dL (74-106); Potassium 3.7 meq/L (3.5-5.1); Sodium 143 meq/L (136-145)
[2018-05-27 08:02] LABS: Dohle Bodies Present; Lymphocytes 1 % (9-44); Monocytes 2 % (0-8); Toxic Granulation 1+
[2018-05-27 08:03] LABS: Platelet Estimate Normal (Normal); Platelet Morphology Normal (Normal)
--- NOTE | 2018-05-27 08:48 | P.PNONC ---
Subjective Interval history: Patient seen and examined, vital signs, labs and medications reviewed. Events over the weekend reviewed, neuropsychology medical consultant notes reviewed. Imaging studies reviewed. Subjectively; patient reports improvement in the epigastric pain, improvement in nausea. She tells me she had multiple bowel movements with the bowel prep and her stools were eventually cleared this morning. She denies fevers or chills. Objective Vital Signs/Intake & Output: Vital Signs 05/26/18 12:00 05/26/18 15:14 05/26/18 20:00 Temperature 98.5 F 97.2 F L 98.9 F Pulse Rate 83 94 H 93 H Respiratory Rate 16 18 18 Blood Pressure 110/67 133/84 122/80 Pulse Oximetry 99 99 98 05/27/18 00:00 05/27/18 04:00 05/27/18 07:56 Temperature 98.9 F 98.4 F 98.6 F Pulse Rate 80 86 87 Respiratory Rate 16 16 18 Blood Pressure 120/80 115/68 104/65 Pulse Oximetry 98 99 Intake & Output 05/26/18 05/27/18 05/27/18 18:59 06:59 18:59 Intake Total 2400 / 2400 1340 / 1340 Output Total 1700 / 1700 Balance 700 / 700 1340 / 1340 Weight 67.7 kg Intake: IV 1200 / 1200 1100 / 1100 NS Inj 1,000 ML @ 100 mls/hr IV 1000 / 1000 1000 / 1000 .CONT .Q10H FATOU Rx#:[id number] Zosyn 4.5 GM Premix 4.5 gm In 200 / 200 100 / 100 100 ml @ 200 mls/hr IV.SIG Q6H FATOU Rx#:[id number] Oral 1200 / 1200 240 / 240 Output: Urine 1700 / 1700 Other: # Voids 2 Date of Last Bowel Movement 05/24/18 05/27/18 # Bowel Movements 3 5 Result Diagrams: 05/27/18 05:30 05/27/18 05:30 Laboratory Results: Laboratory Results - last 24 hr 05/26/18 05/26/18 05/27/18 09:20 09:20 05:30 WBC 34.1 H 42.7 H RBC 2.60 L 2.88 L Hgb 8.3 L 9.2 L Hct 24.4 L 26.7 L MCV 93.5 92.6 MCH 31.7 31.9 MCHC 33.9 34.5 RDW 15.4 14.9 Plt Count 231 254 MPV 7.1 6.8 L Prelim Diff (Auto) Slide review pending Manual diff required Neut % (Auto) 96.3 H Lymph % (Auto) 1.6 L [place] % (Auto) 1.9 Eos % (Auto) 0.0 Baso % (Auto) 0.2 Neut # (Auto) 32.8 H Lymph # (Auto) 0.5 L [place] # (Auto) 0.6 Eos # (Auto) 0.0 Baso # (Auto) 0.1 WBC Differential Manual diff final Manual diff final Seg Neuts % (Manual) 79 H 85 H Band Neuts % (Manual) 15 H 13 H Lymphocytes % (Manual) 2 L 1 L Monocytes % (Manual) 3 2 Basophils % (Manual) 1 Abs Neuts (Manual) 32.1 H 41.8 H Differential Comment . . Toxic Granulation 1+ H 1+ H Dohle Bodies Present H Platelet Estimate Normal Normal Platelet Morphology Normal Normal Ovalocytes 1+ H Sodium 144 Potassium 3.3 L D Chloride 109 H Carbon Dioxide 25.5 Anion Gap 10 BUN 11 Creatinine 0.65 Estimated GFR Greater than 89 Random Glucose 99 Calcium 8.0 L Total Bilirubin 0.3 AST 14 L ALT 13 Alkaline Phosphatase 77 Total Protein 5.5 L D Albumin 2.8 L D 05/27/18 05:30 WBC RBC Hgb Hct MCV MCH MCHC RDW Plt Count MPV Prelim Diff (Auto) Neut % (Auto) Lymph % (Auto) [place] % (Auto) Eos % (Auto) Baso % (Auto) Neut # (Auto) Lymph # (Auto) [place] # (Auto) Eos # (Auto) Baso # (Auto) WBC Differential Seg Neuts % (Manual) Band Neuts % (Manual) Lymphocytes % (Manual) Monocytes % (Manual) Basophils % (Manual) Abs Neuts (Manual) Differential Comment Toxic Granulation Dohle Bodies Platelet Estimate Platelet Morphology Ovalocytes Sodium 143 Potassium 3.7 Chloride 110 H Carbon Dioxide 28.0 Anion Gap 5 BUN 10 Creatinine 0.57 Estimated GFR Greater than 89 Random Glucose 91 Calcium 8.1 L Total Bilirubin AST ALT Alkaline Phosphatase Total Protein Albumin Imaging Studies: Impressions Gallbladder Ultrasound 05/25/18 00:00 CONCLUSION: 1. Normal exam Medications: Active Medications Generic Name Dose Route Start Last Admin Trade Name Freq PRN Reason Stop Dose Admin Acetaminophen 650 mg 05/25/18 06:21 05/26/18 20:27 Tylenol PO 650 mg Q4H PRN Administration Temp > 100.4 Sodium Chloride 1,000 mls @ 100 mls/hr 05/25/18 06:30 05/27/18 02:26 Ns Inj IV.CONT Not Given .Q10H FATOU Piperacillin/Tazobactam/Dextrose 4.5 gm in 100 mls @ 200 mls/hr 05/25/18 12: 00 05/27/18 06:06 Zosyn 4.5 Gm Premix IV.SIG 100 mls/hr Q6H FATOU Administration Ondansetron HCl 4 mg 05/25/18 06:21 05/27/18 00:13 Zofran Inj IV.PUSH 4 mg Q6H PRN Administration NAUSEA OR VOMITING Pantoprazole Sodium 40 mg 05/25/18 11:00 05/26/18 10:20 Protonix Inj IV.PUSH 40 mg Q24H FATOU Administration Prochlorperazine Edisylate 10 mg 05/25/18 06:20 05/26/18 12:41 Compazine Inj IV.PUSH 10 mg Q6H PRN Administration NAUSE/VOMITING Senna/Docusate Sodium 1 tab 05/25/18 09:00 05/27/18 00:14 Hayley-Colace PO Not Given BID FATOU Sucralfate 1 gm 05/25/18 12:00 05/27/18 05:25 Carafate Liq PO 1 gm Q6HR FATOU Administration Objective Remarks: GENERAL: Young lady laying in bed, alopecia chemotherapy. Not acutely distressed. SKIN: Warm and dry. HEAD: Normocephalic. EYES: No scleral icterus. No injection or drainage. NECK: Supple, trachea midline. No JVD or lymphadenopathy. LYMPHATIC: No adenopathy. CARDIOVASCULAR: Regular rate and rhythm without murmurs. RESPIRATORY: Breath sounds equal bilaterally. No accessory muscle use. GASTROINTESTINAL: Thin abdomen, epigastric tenderness, no organ enlargement, positive bowel sounds. No organ enlargement. No tenderness over the right or left lower quadrants.. EXTREMITIES: No cyanosis, or edema. MUSCULOSKELETAL: Adequate muscle tone. NEUROLOGICAL: No obvious focal deficit. Awake, alert, and oriented x3. PSYCHIATRIC: Appropriate mood and affect; insight and judgment normal. Assessment/Plan - Plan Ms. Lehman is a 38-year-old female with a diagnosis of a locally advanced pleomorphic multifocal right breast carcinoma, the tumor is weakly positive for estrogen receptor expression, negative for progesterone receptor expression and HER-2 nonamplified. She is presently on neoadjuvant systemic therapy with Adriamycin and Cytoxan, she received cycle 2 day 14 treatment (her fourth dose) on 05/24/2018. Presents to the hospital the day following treatment with severe epigastric pain. Currently scheduled to undergo EGD and colonoscopy today. 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 Plan: 1. Breast cancer: Her bulky right breast tumors are no longer palpable, the bulky right axillary lymphadenopathy is also no longer palpable. Both these findings indicate excellent response to treatment. 2. Abdominal pain with CT abdomen: She does carry a mutated APC gene, that puts her at high risk for FAP. These findings were discovered last week, I had talked to the patient and her about obtaining colonoscopy after completing treatment for her breast cancer. 3. Leukocytosis: Secondary to Neulasta injection, I suspect this will worsen, peak WBC counts can exceed 60,000 by the fourth or fifth day after injection with this medication. Unless she has fevers I would not suspect sepsis. The leukocytosis is an anticipated response to Neulasta.
--- NOTE | 2018-05-27 11:54 | GIPROC ---
[facility] [address] [facility]. [facility], [address] EGD PROCEDURE REPORT EXAM DATE: 05/27/2018 PATIENT NAME: Amaya Lehman MR #: [id number] BIRTHDATE: 1980 ATTENDING: Jacqueline Marvin MD ORDER #: [id number] MILITARY TECHNOLOGY SPECIALIST: Rosie Singh and Belle Carrera STATUS: inpatient INDICATIONS: The patient is a 38 yr old female here for an EGD due to abdominal pain PROCEDURE PERFORMED: EGD w/ biopsy MEDICATIONS: None and Per Anesthesia. TOPICAL ANESTHETIC: none CONSENT: The patient understands the risks and benefits of the procedure and understands that these risks include, but are not limited to: sedation, allergic reaction, infection, perforation and/or bleeding. Alternative means of evaluation and treatment include, among others: physical exam, x-rays, and/or surgical intervention. The patient elects to proceed with this endoscopic procedure. medical equipment was checked for proper function. Hand hygiene and appropriate measures for infection prevention was taken. After the risks, benefits and alternatives of the procedure were thoroughly explained, Informed consent was verified, confirmed and timeout was successfully executed by the treatment team. The patient was anesthetized with topical anesthesia and the Pentax EG-[id number] endoscope was introduced through the mouth and advanced to the second portion of the duodenum. Retroflexed views revealed a hiatal hernia The gastroscope was then slowly withdrawn and removed. Gastritis antrum-biopsy esophagitis distal esophagus -biopsy. ADVERSE EVENTS: There were no complications. IMPRESSIONS: 1. Gastritis antrum-biopsy esophagitis distal esophagus -biopsy 2. Retroflexed views revealed a hiatal hernia RECOMMENDATIONS: 1. Await biopsy results. Biopsy results will not be ready for 7-10 days. If you don't hear from us in two weeks, call our office for biopsy results. 2. Anti-reflux regimen 3. Continue PPI PATIENT CONDITION: stable DISPOSITION: Inpatient REPEAT EXAM: Return 1 year EGD Jacqueline Marvin MD eSigned: Jacqueline Marvin MD 05/27/2018 11:54 AM cc: PATIENT NAME: Amaya Lehman MR#: [id number]
--- NOTE | 2018-05-27 11:57 | GIPROC ---
[facility] [address] [facility]. [facility], [address] COLONOSCOPY PROCEDURE REPORT EXAM DATE: 05/27/2018 PATIENT NAME: Amaya Lehman MR #: [id number] BIRTHDATE: 1980 ENDOSCOPIST: Jacqueline Marvin MD ORDER #: [id number] [employer] SAL[employer] ADVISOR: Rosie Singh and Belle Carrera STATUS: inpatient INDICATIONS: The patient is a 38 yr old female here for a colonoscopy due to abdominal pain, abnormal ct, increase genetic risk for colon cancer PROCEDURE PERFORMED: Colonoscopy, diagnostic MEDICATIONS: None and Per Anesthesia. PREP QUALITY: fair PREP TYPE:Other: ESTIMATED BLOOD LOSS: None CONSENT: The patient understands the risks and benefits of the procedure and understands that these risks include, but are not limited to: sedation, allergic reaction, infection, perforation and/or bleeding. Alternative means of evaluation and treatment include, among others: physical exam, x-rays, and/or surgical intervention. The patient elects to proceed with this endoscopic procedure. medical equipment was checked for proper function. Hand hygiene and appropriate measures for infection prevention was taken. After the risks, benefits and alternatives of the procedure were thoroughly explained, Informed consent was verified, confirmed and timeout was successfully executed by the treatment team. A digital exam revealed external hemorrhoids The endoscope was introduced through the anus and advanced to the cecum, which was identified by both the appendix and ileocecal valve. The instrument was then slowly withdrawn as the colon was fully examined. COLON FINDINGS: The colonic mucosa appeared normal. Retroflexed views revealed small internal hemorrhoids The scope was then completely withdrawn from the patient and the procedure terminated. PROCEDURE WITHDRAWAL TIME:6minutes ADVERSE EVENTS: There were no complications. IMPRESSIONS: 1. The colonic mucosa appeared normal 2. Retroflexed views revealed small internal hemorrhoids 3. Revealed external hemorrhoids RECOMMENDATIONS: 1. Benefiber 2 tsp daily 2. Probiotics from any [employer] or health food store 3. Yearly rectal exams 4. Family screening for colon cancer RECALL: Return 1 year Colonoscopy Jacqueline Marvin MD eSigned: Jacqueline Marvin MD 05/27/2018 11:57 AM cc:
[2018-05-27] MEDS ORDERED: Lidocaine PF 1% Inj 5 ML Syringe INFILTRATN ONE (12:00)
--- NOTE | 2018-05-27 13:20 | P.PNIM ---
Subjective Interval history: 38-year-old female currently undergoing chemotherapy for breast cancer who presented for abdominal pain. The patient has been having upper mid abdominal discomfort intermittently for the past week. The pain waxes and wanes. The pain peaked at 8/10 in severity yesterday and she came to the ED for evaluation. Denies any recent change to chemotherapy regimen, follows with Dr. Vanessa. She has been having some associated nausea and decreased oral intake, but denies any vomiting, diarrhea, or constipation. CT abdomen in the ED showed possible dilated appendix, inflamed appendix cannot be excluded, mild free fluid in the dependent pelvis on the right side. WBC count 13 with left shift and bandemia, no fever. 8-5 Patient was seen and examined this morning. States that she feels like crap because of the recent chemo. The abdominal pain is much reduced and is down to 2/10 over her stomach area. She last felt nauseated last night for which she was given Zofran. She was able to eat some yoghurt this morning and feels like she is about to have a bowel movement. She denies fever/chills, N/V, CP/SOB, and diarrhea. 8-6 HAD EGD AND COLONOSCOPY FEELS BETTER WANTS TO GO HOME CLEARED BY GI AND SURGERY AND ONCOLOGY WILL DC TO HOME TODAY Physical Exam Vital signs: Vital Signs 05/26/18 15:14 05/26/18 20:00 05/27/18 00:00 Temperature 97.2 F L 98.9 F 98.9 F Pulse Rate 94 H 93 H 80 Respiratory Rate 18 18 16 Blood Pressure 133/84 122/80 120/80 Pulse Oximetry 99 98 98 05/27/18 04:00 05/27/18 07:56 05/27/18 12:05 Temperature 98.4 F 98.6 F 97.9 F Pulse Rate 86 87 69 Respiratory Rate 16 18 18 Blood Pressure 115/68 104/65 134/80 Pulse Oximetry 99 99 Intake & Output 05/26/18 05/27/18 05/27/18 18:59 06:59 18:59 Intake Total 2400 / 2400 1340 / 1340 Output Total 1700 / 1700 Balance 700 / 700 1340 / 1340 Weight 67.7 kg Intake: IV 1200 / 1200 1100 / 1100 NS Inj 1,000 ML @ 100 mls/hr IV 1000 / 1000 1000 / 1000 .CONT .Q10H FATOU Rx#:[id number] Zosyn 4.5 GM Premix 4.5 gm In 200 / 200 100 / 100 100 ml @ 200 mls/hr IV.SIG Q6H FATOU Rx#:[id number] Oral 1200 / 1200 240 / 240 Output: Urine 1700 / 1700 Other: # Voids 2 Date of Last Bowel Movement 05/24/18 05/27/18 05/27/18 # Bowel Movements 3 5 Narrative: GENERAL: Awake alert and oriented 3 talkative and cooperative SKIN: Warm and dry. Has alopecia from chemotherapy HEAD: Atraumatic. Normocephalic. EYES: Pupils equal and round. No scleral icterus. No injection or drainage. EOMI ENT: No nasal bleeding or discharge. Mucous membranes pink and moist. Tongue is midline NECK: Trachea midline. No JVD. Supple CARDIOVASCULAR: Regular rate and rhythm. S1-S2 no S3 or S4 RESPIRATORY: No accessory muscle use. Clear to auscultation. Breath sounds equal bilaterally. GASTROINTESTINAL: Abdomen soft, non-tender, nondistended. Hepatic and splenic margins not palpable. MUSCULOSKELETAL: Extremities without clubbing, cyanosis, or edema. No obvious deformities. NEUROLOGICAL: Awake and alert. No obvious cranial nerve deficits. Motor grossly within normal limits. Five out of 5 muscle strength in the arms and legs. Normal speech. PSYCHIATRIC: Appropriate mood and affect; insight and judgment normal. Results - Labs CBC & Chem 7: 05/27/18 05:30 05/27/18 05:30 Laboratory Results - last 24 hr 05/27/18 05/27/18 05:30 05:30 WBC 42.7 H RBC 2.88 L Hgb 9.2 L Hct 26.7 L MCV 92.6 MCH 31.9 MCHC 34.5 RDW 14.9 Plt Count 254 MPV 6.8 L Prelim Diff (Auto) Manual diff required WBC Differential Manual diff final Seg Neuts % (Manual) 85 H Band Neuts % (Manual) 13 H Lymphocytes % (Manual) 1 L Monocytes % (Manual) 2 Abs Neuts (Manual) 41.8 H Differential Comment . Toxic Granulation 1+ H Dohle Bodies Present H Platelet Estimate Normal Platelet Morphology Normal Sodium 143 Potassium 3.7 Chloride 110 H Carbon Dioxide 28.0 Anion Gap 5 BUN 10 Creatinine 0.57 Estimated GFR Greater than 89 Random Glucose 91 Calcium 8.1 L - Imaging Impressions Gallbladder Ultrasound 08/04/18 00:00 CONCLUSION: 1. Normal exam - Procedures COLONOSCOPY PROCEDURE REPORT EXAM DATE: 05/27/2018 PATIENT NAME: Amaya Lehman MR #: [id number] BIRTHDATE: 1980 ENDOSCOPIST: Jacqueline Marvin MD ORDER #: [id number] BULK FOLDER: Rosie Singh and Belle Carrera STATUS: inpatient INDICATIONS: The patient is a 38 yr old female here for a colonoscopy due to abdominal pain, abnormal ct, increase genetic risk for colon cancer PROCEDURE PERFORMED: Colonoscopy, diagnostic MEDICATIONS: None and Per Anesthesia. PREP QUALITY: fair PREP TYPE:Other: ESTIMATED BLOOD LOSS: None CONSENT: The patient understands the risks and benefits of the procedure and understands that these risks include, but are not limited to: sedation, allergic reaction, infection, perforation and/or bleeding. Alternative means of evaluation and treatment include, among others: physical exam, x-rays, and/or surgical intervention. The patient elects to proceed with this endoscopic procedure. medical equipment was checked for proper function. Hand hygiene and appropriate measures for infection prevention was taken. After the risks, benefits and alternatives of the procedure were thoroughly explained, Informed consent was verified, confirmed and timeout was successfully executed by the treatment team. A digital exam revealed external hemorrhoids The endoscope was introduced through the anus and advanced to the cecum, which was identified by both the appendix and ileocecal valve. The instrument was then slowly withdrawn as the colon was fully examined. COLON FINDINGS: The colonic mucosa appeared normal. Retroflexed views revealed small internal hemorrhoids The scope was then completely withdrawn from the patient and the procedure terminated. PROCEDURE WITHDRAWAL TIME:6minutes ADVERSE EVENTS: There were no complications. IMPRESSIONS: 1. The colonic mucosa appeared normal 2. Retroflexed views revealed small internal hemorrhoids 3. Revealed external hemorrhoids RECOMMENDATIONS: 1. Benefiber 2 tsp daily 2. Probiotics from any [employer] or health food store 3. Yearly rectal exams 4. Family screening for colon cancer RECALL: Return 1 year Colonoscopy EGD PROCEDURE REPORT EXAM DATE: 05/27/2018 PATIENT NAME: Amaya Lehman MR #: [id number] BIRTHDATE: 1980 ATTENDING: Jacqueline Marvin MD ORDER #: [id number] BULK FOLDER: Clark Singh Alice STATUS: inpatient INDICATIONS: The patient is a 38 yr old female here for an EGD due to abdominal pain PROCEDURE PERFORMED: EGD w/ biopsy MEDICATIONS: None and Per Anesthesia. TOPICAL ANESTHETIC: none CONSENT: The patient understands the risks and benefits of the procedure and understands that these risks include, but are not limited to: sedation, allergic reaction, infection, perforation and/or bleeding. Alternative means of evaluation and treatment include, among others: physical exam, x-rays, and/or surgical intervention. The patient elects to proceed with this endoscopic procedure. medical equipment was checked for proper function. Hand hygiene and appropriate measures for infection prevention was taken. After the risks, benefits and alternatives of the procedure were thoroughly explained, Informed consent was verified, confirmed and timeout was successfully executed by the treatment team. The patient was anesthetized with topical anesthesia and the Pentax EG-[id number] endoscope was introduced through the mouth and advanced to the second portion of the duodenum. Retroflexed views revealed a hiatal hernia The gastroscope was then slowly withdrawn and removed. Gastritis antrum-biopsy esophagitis distal esophagus -biopsy. ADVERSE EVENTS: There were no complications. IMPRESSIONS: 1. Gastritis antrum-biopsy esophagitis distal esophagus -biopsy 2. Retroflexed views revealed a hiatal hernia RECOMMENDATIONS: 1. Await biopsy results. Biopsy results will not be ready for 7-10 days. If you don't hear from us in two weeks, call our office for biopsy results. 2. Anti-reflux regimen 3. Continue PPI PATIENT CONDITION: stable DISPOSITION: Inpatient REPEAT EXAM: Return 1 year EGD Assessment and Plan - Plan (1) Abdominal pain -Patient reports 2/10 abdominal pain improved from previous day - CT abd/pel was suspicious for dilated appendix -GS consulted but pt's exam and history not consistent with appendicitis - recommended GI consult - GI consulted -EGD and colonoscopy in the AM -CLD during the day, prep with mag citrate and dulcolax -NPO at midnight -Continue Protonix and Carafate - Continue Zosyn IV Has had EGD and colonoscopy has been cleared by GI and by oncology for discharge (2) Nausea Improved -Continue Zofran as needed -Compazine on board if needed Stable will discharge to home (3) Breast cancer Oncology on board - Patient completed her fourth and final cycle of Adriamycin and Cytoxan on Sunday - Manage symptoms as needed (4) Leukocytosis -Received Neulasta - WBC 34.1 today is expected - Oncology aware - Afebrile Patient had the EGD and colonoscopy Her EGD showed 1. Gastritis antrum-biopsy esophagitis distal esophagus -biopsy 2. Retroflexed views revealed a hiatal hernia RECOMMENDATIONS: 1. Await biopsy results. Biopsy results will not be ready for 7-10 days. If you don't hear from us in two weeks, call our office for biopsy results. 2. Anti-reflux regimen 3. Continue PPI PATIENT CONDITION: stable DISPOSITION: Inpatient REPEAT EXAM: Return 1 year EGD Colonoscopy showed 1. The colonic mucosa appeared normal 2. Retroflexed views revealed small internal hemorrhoids 3. Revealed external hemorrhoids RECOMMENDATIONS: 1. Benefiber 2 tsp daily 2. Probiotics from any [employer] or [employer] food store 3. Yearly rectal exams 4. Family screening for colon cancer RECALL: Return 1 year Colonoscopy Has been cleared by all and wishes to be discharged home today we will discharge to home Code Status: Full code Discussed Condition With: RN and patient and Discharge Planning: Discharge to home today
--- NOTE | 2018-05-27 13:42 | P.DS ---
Date of admission: 05/25/18 06:26 Primary care physician: Lorenza Moore Attending physician on discharge: Vinnie Lockwood Anticipated date of discharge: 05/27/18 Brief History from admission: 38-year-old female currently undergoing chemotherapy for breast cancer who presented for abdominal pain. The patient has been having upper mid abdominal discomfort intermittently for the past week. The pain waxes and wanes. The pain peaked at 8/10 in severity yesterday and she came to the ED for evaluation. Denies any recent change to chemotherapy regimen, follows with Dr. Vanessa. She has been having some associated nausea and decreased oral intake, but denies any vomiting, diarrhea, or constipation. CT abdomen in the ED showed possible dilated appendix, inflamed appendix cannot be excluded, mild free fluid in the dependent pelvis on the right side. WBC count 13 with left shift and bandemia, no fever. DS: Diagnosis - Discharge Diagnosis (1) Abdominal pain Status: Acute (2) Breast cancer Status: Chronic (3) Epigastric abdominal pain Status: Acute (4) Leukocytosis Status: Acute (5) Nausea Status: Acute DS: Medications - Discharge Medications Prescriptions: Lactobacillus acidoph-L.bulgar [Lactinex] 1 tab PO TID #90 tab ondansetron [Zofran ODT] 8 mg PO TID PRN #30 tab PRN Reason: Nausea And Vomiting pantoprazole [Protonix] 40 mg PO DAILY #30 tab sucralfate 1 gm PO Q6HR #120 gm DS: Summary Hospital Course: 38-year-old female currently undergoing chemotherapy for breast cancer who presented for abdominal pain. The patient has been having upper mid abdominal discomfort intermittently for the past week. The pain waxes and wanes. The pain peaked at 8/10 in severity yesterday and she came to the ED for evaluation. Denies any recent change to chemotherapy regimen, follows with Dr. Vanessa. She has been having some associated nausea and decreased oral intake, but denies any vomiting, diarrhea, or constipation. CT abdomen in the ED showed possible dilated appendix, inflamed appendix cannot be excluded, mild free fluid in the dependent pelvis on the right side. WBC count 13 with left shift and bandemia, no fever. 8-5 Patient was seen and examined this morning. States that she feels like crap because of the recent chemo. The abdominal pain is much reduced and is down to 2/10 over her stomach area. She last felt nauseated last night for which she was given Zofran. She was able to eat some yoghurt this morning and feels like she is about to have a bowel movement. She denies fever/chills, N/V, CP/SOB, and diarrhea. 8-6 HAD EGD AND COLONOSCOPY FEELS BETTER WANTS TO GO HOME CLEARED BY GI AND SURGERY AND ONCOLOGY WILL DC TO HOME TODAY - Time Spent with Patient Total time spent providing and/or coordinating discharge services: Greater than 30 minutes Exam Vital signs: Vital Signs 05/26/18 15:14 05/26/18 20:00 05/27/18 00:00 Temperature 97.2 F L 98.9 F 98.9 F Pulse Rate 94 H 93 H 80 Respiratory Rate 18 18 16 Blood Pressure 133/84 122/80 120/80 Pulse Oximetry 99 98 98 05/27/18 04:00 05/27/18 07:56 05/27/18 12:05 Temperature 98.4 F 98.6 F 97.9 F Pulse Rate 86 87 69 Respiratory Rate 18 Blood Pressure 115/68 104/65 134/80 Pulse Oximetry 99 99 Intake & Output 05/26/18 05/27/18 05/27/18 18:59 06:59 18:59 Intake Total 2400 / 2400 1340 / 1340 Output Total 1700 / 1700 Balance 700 / 700 1340 / 1340 Weight 67.7 kg Intake: IV 1200 / 1200 1100 / 1100 NS Inj 1,000 ML @ 100 mls/hr IV 1000 / 1000 1000 / 1000 .CONT .Q10H FATOU Rx#:[id number] Zosyn 4.5 GM Premix 4.5 gm In 200 / 200 100 / 100 100 ml @ 200 mls/hr IV.SIG Q6H FATOU Rx#:[id number] Oral 1200 / 1200 240 / 240 Output: Urine 1700 / 1700 Other: # Voids 2 Date of Last Bowel Movement 05/24/18 05/27/18 05/27/18 # Bowel Movements 3 5 Narrative: GENERAL: Awake alert and oriented 3 talkative SKIN: Warm and dry. Alopecia from chemo HEAD: Atraumatic. Normocephalic. EYES: Pupils equal and round. No scleral icterus. No injection or drainage. EOMI ENT: No nasal bleeding or discharge. Mucous membranes pink and moist. Tongue is midline NECK: Trachea midline. No JVD. Supple CARDIOVASCULAR: Regular rate and rhythm. S1-S2 no S3 or S4 RESPIRATORY: No accessory muscle use. Clear to auscultation. Breath sounds equal bilaterally. GASTROINTESTINAL: Abdomen soft, non-tender, nondistended. Hepatic and splenic margins not palpable. MUSCULOSKELETAL: Extremities without clubbing, cyanosis, or edema. No obvious deformities. NEUROLOGICAL: Awake and alert. No obvious cranial nerve deficits. Motor grossly within normal limits. Five out of 5 muscle strength in the arms and legs. Normal speech. PSYCHIATRIC: Appropriate mood and affect; insight and judgment normal. Results Procedures completed during hospitalization: COLONOSCOPY PROCEDURE REPORT EXAM DATE: 05/27/2018 PATIENT NAME: Amaya Lehman MR #: [id number] BIRTHDATE: 1980 ENDOSCOPIST: Jacqueline Marvin MD ORDER #: [id number] LETTERER: Rosie Singh and Belle Carrera STATUS: inpatient INDICATIONS: The patient is a 38 yr old female here for a colonoscopy due to abdominal pain, abnormal ct, increase genetic risk for colon cancer PROCEDURE PERFORMED: Colonoscopy, diagnostic MEDICATIONS: None and Per Anesthesia. PREP QUALITY: fair PREP TYPE:Other: ESTIMATED BLOOD LOSS: None CONSENT: The patient understands the risks and benefits of the procedure and understands that these risks include, but are not limited to: sedation, allergic reaction, infection, perforation and/or bleeding. Alternative means of evaluation and treatment include, among others: physical exam, x-rays, and/or surgical intervention. The patient elects to proceed with this endoscopic procedure. medical equipment was checked for proper function. Hand hygiene and appropriate measures for infection prevention was taken. After the risks, benefits and alternatives of the procedure were thoroughly explained, Informed consent was verified, confirmed and timeout was successfully executed by the treatment team. A digital exam revealed external hemorrhoids The endoscope was introduced through the anus and advanced to the cecum, which was identified by both the appendix and ileocecal valve. The instrument was then slowly withdrawn as the colon was fully examined. COLON FINDINGS: The colonic mucosa appeared normal. Retroflexed views revealed small internal hemorrhoids The scope was then completely withdrawn from the patient and the procedure terminated. PROCEDURE WITHDRAWAL TIME:6minutes ADVERSE EVENTS: There were no complications. IMPRESSIONS: 1. The colonic mucosa appeared normal 2. Retroflexed views revealed small internal hemorrhoids 3. Revealed external hemorrhoids RECOMMENDATIONS: 1. Benefiber 2 tsp daily 2. Probiotics from any [employer] or health food store 3. Yearly rectal exams 4. Family screening for colon cancer RECALL: Return 1 year Colonoscopy EGD PROCEDURE REPORT EXAM DATE: 05/27/2018 PATIENT NAME: Amaya Lehman MR #: [id number] BIRTHDATE: 1980 ATTENDING: Jacqueline Marvin MD ORDER #: [id number] LETTERER: Rosie Singh and Belle Carrera STATUS: inpatient INDICATIONS: The patient is a 38 yr old female here for an EGD due to abdominal pain PROCEDURE PERFORMED: EGD w/ biopsy MEDICATIONS: None and Per Anesthesia. TOPICAL ANESTHETIC: none CONSENT: The patient understands the risks and benefits of the procedure and understands that these risks include, but are not limited to: sedation, allergic reaction, infection, perforation and/or bleeding. Alternative means of evaluation and treatment include, among others: physical exam, x-rays, and/or surgical intervention. The patient elects to proceed with this endoscopic procedure. medical equipment was checked for proper function. Hand hygiene and appropriate measures for infection prevention was taken. After the risks, benefits and alternatives of the procedure were thoroughly explained, Informed consent was verified, confirmed and timeout was successfully executed by the treatment team. The patient was anesthetized with topical anesthesia and the Pentax [id number] endoscope was introduced through the mouth and advanced to the second portion of the duodenum. Retroflexed views revealed a hiatal hernia The gastroscope was then slowly withdrawn and removed. Gastritis antrum-biopsy esophagitis distal esophagus -biopsy. ADVERSE EVENTS: There were no complications. IMPRESSIONS: 1. Gastritis antrum-biopsy esophagitis distal esophagus -biopsy 2. Retroflexed views revealed a hiatal hernia RECOMMENDATIONS: 1. Await biopsy results. Biopsy results will not be ready for 7-10 days. If you don't hear from us in two weeks, call our office for biopsy results. 2. Anti-reflux regimen 3. Continue PPI PATIENT CONDITION: stable DISPOSITION: Inpatient REPEAT EXAM: Return 1 year EGD Completed studies during hospitalization: Laboratory Results WBC 42.7 th/mm3 (4.0-11.0) H 05/27/18 05:30 RBC 2.88 mil/mm3 (4.00-5.30) L 05/27/18 05:30 Hgb 9.2 gm/dL (11.6-15.3) L 05/27/18 05:30 Hct 26.7 % (35.0-46.0) L 05/27/18 05:30 MCV 92.6 fL (80.0-100.0) 05/27/18 05:30 MCH 31.9 pg (27.0-34.0) 05/27/18 05:30 MCHC 34.5 % (32.0-36.0) 05/27/18 05:30 RDW 14.9 % (11.6-17.2) 05/27/18 05:30 Plt Count 254 th/mm3 (150-450) 05/27/18 05:30 MPV 6.8 fL (7.0-11.0) L 05/27/18 05:30 Prelim Diff (Auto) Manual diff required 05/27/18 05:30 Neut % (Auto) 96.3 % (16.0-70.0) H 05/26/18 09:20 Lymph % (Auto) 1.6 % (9.0-44.0) L 05/26/18 09:20 Story % (Auto) 1.9 % (0.0-8.0) 05/26/18 09:20 Eos % (Auto) 0.0 % (0.0-4.0) 05/26/18 09:20 Baso % (Auto) 0.2 % (0.0-2.0) 05/26/18 09:20 Neut # (Auto) 32.8 th/mm3 (1.8-7.7) H 05/26/18 09:20 Lymph # (Auto) 0.5 th/mm3 (1.0-4.8) L 05/26/18 09:20 Story # (Auto) 0.6 th/mm3 (0.0-0.9) 05/26/18 09:20 Eos # (Auto) 0.0 th/mm3 (0.0-0.4) 05/26/18 09:20 Baso # (Auto) 0.1 th/mm3 (0.0-0.2) 05/26/18 09:20 WBC Differential Manual diff final 05/27/18 05:30 Seg Neuts % (Manual) 85 % (16-70) H 05/27/18 05:30 Band Neuts % (Manual) 13 % (0-6) H 05/27/18 05:30 Lymphocytes % (Manual) 1 % (9-44) L 05/27/18 05:30 Monocytes % (Manual) 2 % (0-8) 05/27/18 05:30 Basophils % (Manual) 1 % (0-2) 05/26/18 09:20 Metamyelocytes % (Man) 4 % (0-1) H 05/24/18 22:15 Myelocytes % (Man) 1 % (0-0) H 05/24/18 22:15 Abs Neuts (Manual) 41.8 th/mm3 (1.8-7.7) H 05/27/18 05:30 Differential Comment . 05/27/18 05:30 Toxic Granulation 1+ (None) H 05/27/18 05:30 Dohle Bodies Present (None) H 05/27/18 05:30 Platelet Estimate Normal (Normal) 05/27/18 05:30 Platelet Morphology Normal (Normal) 05/27/18 05:30 Ovalocytes 1+ (None) H 05/26/18 09:20 Sodium 143 meq/L (136-145) 05/27/18 05:30 Potassium 3.7 meq/L (3.5-5.1) 05/27/18 05:30 Chloride 110 meq/L (98-107) H 05/27/18 05:30 Carbon Dioxide 28.0 meq/L (21.0-32.0) 05/27/18 05:30 Anion Gap 5 meq/L (5-15) 05/27/18 05:30 BUN 10 mg/dL (7-18) 05/27/18 05:30 Creatinine 0.57 mg/dL (0.50-1.00) 05/27/18 05:30 Estimated GFR Greater than 89 mL/min (>89) 05/27/18 05:30 Random Glucose 91 mg/dL (74-106) 05/27/18 05:30 Calcium 8.1 mg/dL (8.5-10.1) L 05/27/18 05:30 Total Bilirubin 0.3 mg/dL (0.2-1.0) 05/26/18 09:20 AST 14 U/L (15-37) L 05/26/18 09:20 ALT 13 U/L (10-53) 05/26/18 09:20 Alkaline Phosphatase 77 U/L (45-117) 05/26/18 09:20 Total Protein 5.5 g/dL (6.4-8.2) L D 05/26/18 09:20 Albumin 2.8 g/dL (3.4-5.0) L D 05/26/18 09:20 Lipase 107 U/L (73-393) 05/24/18 22:15 Urine Color Straw (Yellw/Straw) 05/25/18 08:24 Urine Clarity Clear (Clear) 05/25/18 08:24 Urine pH 6.0 (5.0-8.5) 05/25/18 08:24 Ur Specific [place] 1.013 (1.002-1.035) 05/25/18 08:24 Urine Protein Negative mg/dL (Neg-Trace) 05/25/18 08:24 Urine Glucose (UA) Negative mg/dL (Negative) 05/25/18 08:24 Urine Ketones Negative mg/dL (Negative) 05/25/18 08:24 Urine Occult Blood Negative (Negative) 05/25/18 08:24 Urine Nitrate Negative (Negative) 05/25/18 08:24 Urine Bilirubin Negative (Negative) 05/25/18 08:24 Urine Urobilinogen Less than 2 mg/dL (Less than 2) 05/25/18 08:24 Ur Leukocyte Esterase Negative (Negative) 05/25/18 08:24 Urine RBC Less than 1 /hpf (0-3) 05/25/18 08:24 Urine WBC Less than 1 /hpf (0-5) 05/25/18 08:24 Ur Squamous Epith Cells 1 /hpf (0-5) 05/25/18 08:24 Micro UA Comment Culture not ind 05/25/18 08:24 Urine Culture Comments Culture not ind 05/25/18 08:24 Impressions Gallbladder Ultrasound 05/25/18 00:00 CONCLUSION: 1. Normal exam Abdomen/Pelvis CT 05/25/18 00:18 CONCLUSION: 1. 1.7 cm tubular structure adjacent to the inferior cecum could represent a dilated appendix; inflamed appendix cannot be excluded. 2. Mild amount of free fluid in the dependent pelvis on the right side. Pending studies at discharge: Pending at discharge 05/27/18 Surgical [PTH] Routine Labs on day of discharge: Labs from last 24 hours 05/27/18 05/27/18 05:30 05:30 WBC 42.7 H RBC 2.88 L Hgb 9.2 L Hct 26.7 L MCV 92.6 MCH 31.9 MCHC 34.5 RDW 14.9 Plt Count 254 MPV 6.8 L Prelim Diff (Auto) Manual diff required WBC Differential Manual diff final Seg Neuts % (Manual) 85 H Band Neuts % (Manual) 13 H Lymphocytes % (Manual) 1 L Monocytes % (Manual) 2 Abs Neuts (Manual) 41.8 H Differential Comment . Toxic Granulation 1+ H Dohle Bodies Present H Platelet Estimate Normal Platelet Morphology Normal Sodium 143 Potassium 3.7 Chloride 110 H Carbon Dioxide 28.0 Anion Gap 5 BUN 10 Creatinine 0.57 Estimated GFR Greater than 89 Random Glucose 91 Calcium 8.1 L - Impressions ITS Impressions Gallbladder Ultrasound 05/25/18 00:00 CONCLUSION: 1. Normal exam Abdomen/Pelvis CT 05/25/18 00:18 CONCLUSION: 1. 1.7 cm tubular structure adjacent to the inferior cecum could represent a dilated appendix; inflamed appendix cannot be excluded. 2. Mild amount of free fluid in the dependent pelvis on the right side. Discharge Plan - Discharge Disposition Patient Disposition: 01 Discharge Home - Discharge Condition Condition: Stable - Discharge Order Discharge Orders: Discharge Order (Routine); Ordered 05/27/18 Ordered By: Vinnie Lockwood - Discharge Details Anticipated Discharge Date: 05/27/18 Discharge Comment: DC TO HOME - Physicians Team Primary Care Provider: Lorenza Moore Attending Provider: Vinnie Lockwood Other Providers: Csaa Vanessa MD
[2018-05-27] MEDS ORDERED: Heparin Central Flush 100 UNIT/ML 5 ML Vial IV.FLUSH PRN ×2 (14:16)
[2018-05-27] MEDS: Pantoprazole Inj 40 MG Vial IV.PUSH SCH (15:09)
[2018-05-28 18:40] VITALS: BP 134/80; PULSE 83; RESP 18; TEMP 98.2; O2SAT 99
== END 2018-05-27 15:17 | disposition home or self-care (01) ==
LOC: NEPE 20:45 → HCIN 20:45 → NEDA 20:45 → HCIS 05-25 09:11 → HCIN 05-25 16:28
PROVIDERS: ADMIT Internal Medicine; ATTEND Hospitalist
PROC: COLONOS (2018-05-27 11:13)
DX: K29.70 Gastritis, unspecified, without bleeding; C50.911 Malignant neoplasm of unspecified site of right female breast; K20.9 Esophagitis, unspecified; K64.4 Residual hemorrhoidal skin tags; D72.825 Bandemia; K64.8 Other hemorrhoids; Z17.1 Estrogen receptor negative status [ER-]; K44.9 Diaphragmatic hernia without obstruction or gangrene; R10.13 Epigastric pain; R10.11 Right upper quadrant pain; K59.00 Constipation, unspecified; D63.8 Anemia in other chronic diseases classified elsewhere